=== PATIENT | female | born 1950 | race Caucasian/White ===

== ENCOUNTER 2017-12-13 15:57 | Emergency (ER) | payer MEDICARE, MEDICAID ==
[~2017-12-13] VITALS: Ht 160 cm; Wt 130.0 kg
[~2017-12-13 15:57] MED LIST: ABILIFY20 MG PO; ALMACONE LIQUI355 ML PO; AMBIEN 5 MG TABL5 M1 PO; ASPIR 8181 MG PO; ATIVAN0.5 MG PO; BENADRYL25 MG PO; BENZTROPINE MES1 MG PO; CEFTIN 250 MG250 MG PO; CIPRO500 MG PO; CLOZAPINE200 MG PO; COLACE100 MG PO; DOXYCYCLINE 10100 MG PO; GLUTOSE 1537.5 GM PO; IBUPROFEN 400400 M2 PO; KLOR-CON 1010 MEQ PO; LANTUS SUBQ; LEVAQUIN 500 M500 M4 PO; LIPITOR10 MG PO; LOPRESSOR50 PO; LYRICA 75 MG CA75 MG PO; LYRICA100 MG PO; MILK OF MA2400 MG/10 PO; MIRALAX17 GM PO; MIRALAX255 GM PO; MYRBETRIQ25 MG PO; NOVOLIN R100 UNIT/1 IJ; NOVOLIN R100 UNIT/1 SUBQ; NOVOLOG100 UNIT/1 SUBQ; NYSTATIN 1100000 U/M TOP; ONDANSETRON HCL4 M2 DISSOLVE; PANTOPRAZOLE SO40 M1 PO; SENOKOT-S1 TA1 PO; THEREMS-M1 EACH PO; TRAZODONE HCL50 MG PO; TRICOR145 MG PO; TYLENOL325 MG PO; WELLBUTRIN XL150 MG PO
[2017-12-13 19:56] VITALS: BP 136/77
== END 2017-12-13 19:57 | disposition home or self-care (01) ==
LOC: M.ERS 15:57
DX: S80.02XA Contusion of left knee, initial encounter (principal); K21.9 Gastro-esophageal reflux disease without esophagitis; I10 Essential (primary) hypertension; E78.5 Hyperlipidemia, unspecified; E11.9 Type 2 diabetes mellitus without complications; M19.90 Unspecified osteoarthritis, unspecified site; F32.9 Major depressive disorder, single episode, unspecified; Z79.4 Long term (current) use of insulin; Z90.710 Acquired absence of both cervix and uterus; Z88.0 Allergy status to penicillin; Z88.1 Allergy status to other antibiotic agents; W18.39XA Other fall on same level, initial encounter; Y93.89 Activity, other specified; Y92.89 Other specified places as the place of occurrence of the external cause; Y99.8 Other external cause status

== ENCOUNTER 2018-02-02 15:21 | Emergency (ER) | payer MEDICARE, MEDICAID ==
[~2018-02-02] VITALS: Ht 160 cm; Wt 133.8 kg
[2018-02-02 16:27] LABS: ABSOLUTE BASOPHILS 0.1 thou/uL (0.0-0.2); ABSOLUTE EOSINOPHILS 0.3 thou/uL (0.0-0.7); ABSOLUTE MONOCYTES 0.7 thou/uL (0.0-1.2); ABSOLUTE NEUTROPHILS 6.4 thou/uL (1.6-8.1); BASOPHILS 0.9 %; EOSINOPHILS 2.7 %; HEMATOCRIT 40.8 % (37.0-47.0); HEMOGLOBIN 13.8 gm/dL (12.0-15.0); LYMPHOCYTES 20.9 %; MCH 30.7 pg (26.0-34.0); MCHC 33.7 g/dL (28.0-37.0); MONOCYTES 7.3 %; MPV 7.8 fl. (7.2-11.1); NUCLEATED RBCS 0 /100WBC; PLATELET COUNT* 167 thou/uL (150-400); POLYS 68.2 %; RBC 4.49 mil/uL (4.20-5.00); RDW-CV 14.5 % (10.5-14.5); WBC 9.3 thou/uL (4.0-11.0)
[2018-02-02 16:35] LABS: ANION GAP 9 mmol/L (7-16); BUN 18 mg/dL (7-18); CALCIUM 9.2 mg/dL (8.5-10.1); CHLORIDE 99 mmol/L (98-107); CO2 27 mmol/L (21-32); CREATININE 1.1 mg/dL (0.6-1.3); GLUCOSE 169 mg/dL (70-99); POTASSIUM 4.2 mmol/L (3.5-5.1); SODIUM 135 mmol/L (136-145)
[2018-02-02 16:42] LABS: ALBUMIN 3.7 g/dL (3.4-5.0); ALKALINE PHOSPHATASE 62 U/L (46-116); SGOT 20 U/L (15-37); SGPT 32 U/L (30-65); TOTAL BILIRUBIN 0.3 mg/dL (<0.1-1.0); TOTAL PROTEIN 6.5 g/dL (6.4-8.2); TROPONIN-I LEVEL <0.06 ng/mL (<0.06)
[2018-02-02 17:44] VITALS: BP 111/44
== END 2018-02-02 17:47 | disposition home or self-care (01) ==
LOC: M.ERS 15:21
PROVIDERS: Physician Assistant
DX: G89.29 Other chronic pain (principal); M54.5 Low back pain; E11.40 Type 2 diabetes mellitus with diabetic neuropathy, unspecified; I10 Essential (primary) hypertension; E78.5 Hyperlipidemia, unspecified; M19.90 Unspecified osteoarthritis, unspecified site; F32.9 Major depressive disorder, single episode, unspecified; K21.9 Gastro-esophageal reflux disease without esophagitis; Z88.0 Allergy status to penicillin; Z88.1 Allergy status to other antibiotic agents; Z79.4 Long term (current) use of insulin; Z90.710 Acquired absence of both cervix and uterus

== ENCOUNTER 2018-02-09 11:20 | Inpatient (IN) | payer MEDICARE, MEDICAID ==
[~2018-02-09] VITALS: Ht 160 cm; Wt 127.9 kg
[2018-02-09 11:21] VITALS: BP 137/66
[2018-02-09 11:47] LABS: ABSOLUTE EOSINOPHILS 0.2 thou/uL (0.0-0.7); ABSOLUTE LYMPHOCYTES 1.4 thou/uL (0.8-5.3); ABSOLUTE MONOCYTES 0.7 thou/uL (0.0-1.2); BASOPHILS 0.2 %; EOSINOPHILS 1.1 %; HEMATOCRIT 43.4 % (37.0-47.0); HEMOGLOBIN 14.9 gm/dL (12.0-15.0); LYMPHOCYTES 10.7 %; MCHC 34.2 g/dL (28.0-37.0); MCV 90.5 fL (80.0-100.0); MONOCYTES 5.6 %; MPV 7.9 fl. (7.2-11.1); NUCLEATED RBCS 0 /100WBC; PLATELET COUNT* 155 thou/uL (150-400); POLYS 82.4 %; RBC 4.79 mil/uL (4.20-5.00); RDW-CV 14.6 % (10.5-14.5); WBC 13.3 thou/uL (4.0-11.0)
[2018-02-09 11:51] LABS: ANION GAP 9 mmol/L (7-16); BUN 14 mg/dL (7-18); CALCIUM 8.4 mg/dL (8.5-10.1); CHLORIDE 98 mmol/L (98-107); CO2 28 mmol/L (21-32); GLUCOSE 169 mg/dL (70-99); SODIUM 135 mmol/L (136-145)
[2018-02-09 12:02] LABS: ALBUMIN 3.4 g/dL (3.4-5.0); ALKALINE PHOSPHATASE 67 U/L (46-116); NT-PRO BRAIN NAT PEPTIDE 44 pg/mL (<300); SGOT 20 U/L (15-37); SGPT 32 U/L (30-65); TOTAL BILIRUBIN 0.3 mg/dL (<0.1-1.0); TOTAL PROTEIN 6.4 g/dL (6.4-8.2); TROPONIN-I LEVEL <0.06 ng/mL (<0.06)
[2018-02-09 15:13] VITALS: BP 126/67
--- NOTE | 2018-02-09 16:15 | EKG ---
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1950 Requested By: Ray Ellis Order Number: [id number] MD: Eric Yao Measurements Intervals [place] Rate: 91 P: 59 OR: 153 QRS: -42 QRSD: 93 T: 56 QT: 337 QTc: 415 Interpretive Statements Sinus rhythm left axis Abnormal R-wave progression, late transition consider Inferior infarct, old Compared to ECG 08/05/2017 12:39:12 No significant changes Electronically Signed On 02-09-2018 16:15:35 CDT by Eric Yao [email or web address] <ELECTRONICALLY SIGNED> By: Eric Yao MD, [facility] 02/09/18 1615 1139 1139 Eric Yao MD, [facility] /EPI
[2018-02-09 17:40] VITALS: BP 129/70
--- NOTE | 2018-02-09 18:20 | NUR ---
RECEIVED REPORT AND ASSUMED CARE AT 1525. VSS. CARDIAC MONITORIN IN PLACE. PT DENIES ANY COMPLAINTS OF PAIN. PT IS Q2T, 4L NC, SR ON THE MONITOR, PT SEPTIC, COMPLAINTS OF BLADDER FEELING FULL,NOT ABLE TO URINATE. LASIX IVEN. MARTÍNEZ PLACED PER PHYSICIAN ODERS. MEDICATIONS ADMINISTERED PRE ORDERS. TURNS COMPLETED, HOURLY ROUNDING COMPLETED, ALL NEEDS MET. PT REPORTED HEACHACHE , PRN MEDICATION ADMINISTERED. NURSING WILL CONTINUE TO MONITOR
[2018-02-09 18:28] LABS: URINE BILIRUBIN NEGATIVE (Negative); URINE BLOOD NEGATIVE (Negative); URINE CLARITY CLEAR; URINE COLOR YELLOW; URINE GLUCOSE-RANDOM NEGATIVE (Negative); URINE KETONES NEGATIVE (Negative); URINE LEUKOCYTES-REFLEX NEGATIVE (Negative); URINE NITRITE-REFLEX NEGATIVE (Negative); URINE PROTEIN NEGATIVE (Negative); URINE SPECIFIC GRAVITY 1.015 (1.005-1.030); URINE UROBILINOGEN 0.2 E.U./dl (0.2-1.0)
[2018-02-09 19:50] VITALS: BP 101/59
[2018-02-10] VITALS: BP 98/58
[2018-02-10 04:00] VITALS: BP 116/59
--- NOTE | 2018-02-10 04:23 | NUR ---
A&O X4 CALM COOPERITIVE. Q2 TURNS. MARTÍNEZ FOR RENTION. SR ON THE MONTIOR. 4L O2. PT CLOAZAPINE NOT AVAILABLE. SISTER CALLED AND ASKED TO BRING MEDICATION TO HOSPITAL. METROPOL HELD BP LOW. VITALS WNL. SEE MAR. SEE CHARTING. FALL PRECAUTIONS IN PLACE. HOURLY ROUNDING FOR SAFETY.
[2018-02-10 05:10] LABS: HEMATOCRIT 41.2 % (37.0-47.0); HEMOGLOBIN 13.9 gm/dL (12.0-15.0); MCH 30.6 pg (26.0-34.0); MCHC 33.8 g/dL (28.0-37.0); MCV 90.4 fL (80.0-100.0); MPV 7.9 fl. (7.2-11.1); NUCLEATED RBCS 0 /100WBC; PLATELET COUNT* 146 thou/uL (150-400); RBC 4.56 mil/uL (4.20-5.00); RDW-CV 14.1 % (10.5-14.5); WBC 11.7 thou/uL (4.0-11.0)
[2018-02-10 05:25] LABS: ALBUMIN 3.5 g/dL (3.4-5.0); CALCIUM 8.7 mg/dL (8.5-10.1); CREATININE 0.9 mg/dL (0.6-1.3); MAGNESIUM 1.8 mg/dL (1.8-2.4); PHOSPHORUS* 2.9 mg/dL (2.5-4.9); TOTAL BILIRUBIN 0.4 mg/dL (<0.1-1.0); TOTAL PROTEIN 6.7 g/dL (6.4-8.2)
[2018-02-10 06:33] LABS: ABSOLUTE LYMPHOCYTES 1.2 thou/uL (0.8-5.3); ABSOLUTE MONOCYTES 0.2 thou/uL (0.0-1.2); ABSOLUTE NEUTROPHILS 10.3 thou/uL (1.6-8.1); ANISOCYTOSIS 1+; PLATELET ESTIMATE DECREASED; POIKILOCYTOSIS 1+
[2018-02-10 07:30] VITALS: BP 154/88
[2018-02-10 12:34] VITALS: BP 134/66
[2018-02-10 16:24] VITALS: BP 140/70
--- NOTE | 2018-02-10 16:49 | NUR ---
RECEIVED REPORT AND ASSUMED CARE AT 0700. VSS. CARDIAC MONITORING IN PLACE. PT DENIES ANY COMPLAINTS OF PAIN. PT UP IN CHAIR FOR BREAKFAST. ASSESSMENT COMPLETED CHARTED. MEDICATION ADMINISTERED PER ORDERS. PT UP WITH 1-2 ASSIST AND WALKER. PT ON 3L NC. PT SISTER BROUGHT CLOZAPINE MEDICATION FROM FACILITY SO PT CAN CONTINUE TREATMENT. MEDICATION VERIFIED BY PHARMACY AND PLACED IN PTACCESS BIN. RECEIVED CLOZAPINE AT 1430, 52 TAB IN MED CARD. WILL NEED TO RETURN TO FACILITY. POSSIBLY NEED EMS TRANSPORT UPON D/C TO ENSURE MED CARD CAN BE TAKEN. WILL NOTIFY CM. HOURLY ROUNDING COMPLETED, ALL NEEDS MET. PT SAT UP IN CHAIR MAJORITY OF THE DAY. PROGRESSING TOWARDS GOALS. WILL CONTINUE TO MONITOR FOR REMIANDER OF THE SHIFT
[2018-02-10 20:00] VITALS: BP 123/79
[2018-02-11] VITALS: BP 125/74
[2018-02-11 04:00] VITALS: BP 146/84
[2018-02-11 07:18] LABS: ABSOLUTE LYMPHOCYTES 1.2 thou/uL (0.8-5.3); ABSOLUTE MONOCYTES 0.7 thou/uL (0.0-1.2); ABSOLUTE NEUTROPHILS 11.9 thou/uL (1.6-8.1); BASOPHILS 0.3 %; EOSINOPHILS 0.2 %; HEMATOCRIT 40.7 % (37.0-47.0); HEMOGLOBIN 13.7 gm/dL (12.0-15.0); LYMPHOCYTES 8.6 %; MCH 30.8 pg (26.0-34.0); MCHC 33.7 g/dL (28.0-37.0); MCV 91.5 fL (80.0-100.0); MONOCYTES 4.9 %; MPV 8.2 fl. (7.2-11.1); NUCLEATED RBCS 0 /100WBC; PLATELET COUNT* 159 thou/uL (150-400); RBC 4.45 mil/uL (4.20-5.00); RDW-CV 14.3 % (10.5-14.5); WBC 13.8 thou/uL (4.0-11.0)
[2018-02-11 07:32] LABS: ALBUMIN 3.6 g/dL (3.4-5.0); CALCIUM 8.6 mg/dL (8.5-10.1); CREATININE 0.9 mg/dL (0.6-1.3); POTASSIUM 4.3 mmol/L (3.5-5.1); TOTAL BILIRUBIN 0.3 mg/dL (<0.1-1.0); TOTAL PROTEIN 6.7 g/dL (6.4-8.2)
[2018-02-11 07:50] VITALS: BP 160/90
[2018-02-11 12:18] VITALS: BP 126/70
[2018-02-11 15:57] VITALS: BP 140/76
--- NOTE | 2018-02-11 16:57 | NUR ---
RECEIVED REPORT AND ASSUMED CARE AT 0700. VSS. NEGATIVE CLEANER IN PLACE. PT DENIES ANY COMPLAINTS OF PAIN. ASSESSMENT COMPLETED CHARTED. DISCUSSED PLAN OF CARE WITH PT, VERBALIZED UNDERSTANDING. PT UP SBA WITH WALKER IN THE ROOM. MARTÍNEZ CATH D/C PER ORDERS. IV FLUIDS D/C. PT ON RA. BED IN LOWEST POSITIOIN, CALL LIGHT WITHIN REACH. BED ALARM ON, CHAIR ALARM USED WHEN IN RECLINER. PT STATES SHE IS FEELING BETTER TODAY. HOURLY ROUNDING COMPLETED AND ALL NEEDS MET. NURSING WILL CONTINUE TO MONITOR.
[2018-02-11 19:50] VITALS: BP 137/71
[2018-02-12] VITALS (8 sets, daily range): BP systolic 104–168; BP diastolic 57–76
[2018-02-12 04:47] LABS: HEMOGLOBIN 12.7 gm/dL (12.0-15.0); MCV 90.4 fL (80.0-100.0); WBC 13.6 thou/uL (4.0-11.0)
[2018-02-12 04:50] LABS: ABSOLUTE EOSINOPHILS 0.2 thou/uL (0.0-0.7); ABSOLUTE MONOCYTES 0.9 thou/uL (0.0-1.2); ABSOLUTE NEUTROPHILS 9.6 thou/uL (1.6-8.1); BASOPHILS 0.2 %; EOSINOPHILS 1.4 %; HEMATOCRIT 37.4 % (37.0-47.0); MCH 30.7 pg (26.0-34.0); MONOCYTES 6.3 %; MPV 7.7 fl. (7.2-11.1); NUCLEATED RBCS 0 /100WBC; PLATELET COUNT* 159 thou/uL (150-400); POLYS 70.1 %; RBC 4.13 mil/uL (4.20-5.00); RDW-CV 14.8 % (10.5-14.5)
[2018-02-12 05:12] LABS: ALBUMIN 3.1 g/dL (3.4-5.0); CALCIUM 8.3 mg/dL (8.5-10.1); CREATININE 0.8 mg/dL (0.6-1.3); POTASSIUM 3.4 mmol/L (3.5-5.1); TOTAL BILIRUBIN 0.3 mg/dL (<0.1-1.0); TOTAL PROTEIN 5.6 g/dL (6.4-8.2)
--- NOTE | 2018-02-12 05:46 | NUR ---
PT A&O X2 CALM COOPERITIVE. SR ON THE MONITOR. APROX 0400 PT BLOOD SUGAR WAS 41, DEXTROSS GIVEN BLOOD SUGAR INC TO 148,1 HOUR LATER SUGAR 89, 30 MIN LATER SUGAR DROPED TO 70, GLUCOSE PASTE GIVEN AT 0600. Q2 TURNS. UP WITH X1 AND WALKER. VITALS WNL. SEE MAR. SEE CHARTING. FALL PRECAUTIONS IN PLACE. HOURLY ROUNDING FOR SAFETY.
--- NOTE | 2018-02-12 10:50 | NUR ---
CM SPOKE TO THE PAIENT TO DISCUSS HOME SITUATION, DISCHARGE PLANNING AND TO INFORM OF THE ROLE OF CM. PATIENT ALERT, BUT FORGETFUL. CM SPOKE TO YULIA WITH [facility] TO COMPLETE ASSESSMENT. YULIA CONFIRMS THAT THE PATIENT IS A RESIDENT IN THE FACILITY, AND THE STAFF ASSIST WITH BATHING, DRESSING, AND PREPARE MEALS. THE PATIENT USES A WALKER FOR MOBILITY. PATIENT HAS A HX OF HH WITH [facility]. [facility] WILL ACCEPT THE PATIENT BACK TO THE FACILITY AT D/C, AND WILL NEEDS D/C ORDERS FAXED AT THAT TIME. [facility] OFFICE WILL ALSO NEED TO BE CONTACTED PRIOR TO DISCHARGE. CM WILL REMAIN AVAILABLE TO ASSIST AND FOLLOW NEEDED. [facility] (YULIA) PHONE: [phone] FAX: [phone] [facility] OFICE PHONE: [phone]
--- NOTE | 2018-02-12 12:20 | NUR ---
Nutrition: Pt seen for high BMI and DX of sepsis. Pt was confused at 11:50. She did state she has a good appetite. She lost 5# in past 2 months b/c she is trying to eat healthier. RD gave her handouts on plate method and seving sizes. Pt was appreciative. Labs: K+ 3.4, alb 3.1, WBC 13.6. "Early sepsis." CHO controlled diet. H/o IDDM. Has had some hypoglycemia since admit. No further nutrition interventions needed. Mild risk. Will follow up per protocol.
--- NOTE | 2018-02-12 19:15 | NUR ---
PATINET RESTING IN BED. UP WITH STANDBY ASSIST AND WALKER USAGE. VITAL SIGNS STABLE. PAITNET HAD A BOUT OF HYPOGLYCEMIA THIS AM TREATED WITH PO JUICES AND MEDICATION CHANGES. PAITNET ALERT AND ORIENTED X3 TODAY AND APPROPRIATE. PATIENT DOES FORGET TO CALL OUT AT TIMES AND HAS URGENCY WITH URINATION. HOURY ROUNDING COMPLETD FOR PATIENT SAFETY.
[2018-02-13 03:56] VITALS: BP 124/55
[2018-02-13 04:29] LABS: ABSOLUTE BASOPHILS 0.1 thou/uL (0.0-0.2); ABSOLUTE EOSINOPHILS 0.3 thou/uL (0.0-0.7); ABSOLUTE LYMPHOCYTES 2.6 thou/uL (0.8-5.3); ABSOLUTE MONOCYTES 0.6 thou/uL (0.0-1.2); ABSOLUTE NEUTROPHILS 4.6 thou/uL (1.6-8.1); BASOPHILS 0.9 %; EOSINOPHILS 3.3 %; HEMATOCRIT 36.5 % (37.0-47.0); HEMOGLOBIN 12.4 gm/dL (12.0-15.0); LYMPHOCYTES 31.9 %; MCH 30.9 pg (26.0-34.0); MCHC 33.8 g/dL (28.0-37.0); MCV 91.2 fL (80.0-100.0); MONOCYTES 7.7 %; MPV 7.8 fl. (7.2-11.1); NUCLEATED RBCS 0 /100WBC; PLATELET COUNT* 142 thou/uL (150-400); POLYS 56.2 %; RDW-CV 14.7 % (10.5-14.5); WBC 8.2 thou/uL (4.0-11.0)
[2018-02-13 04:41] LABS: ALBUMIN 2.8 g/dL (3.4-5.0); CALCIUM 8.5 mg/dL (8.5-10.1); CREATININE 0.8 mg/dL (0.6-1.3); POTASSIUM 3.7 mmol/L (3.5-5.1); TOTAL BILIRUBIN 0.4 mg/dL (<0.1-1.0); TOTAL PROTEIN 5.5 g/dL (6.4-8.2)
--- NOTE | 2018-02-13 05:33 | NUR ---
PT IS ABLE TO COMMUNICATE HER NEEDS TO STAFF WITH ONLY MINOR DIFFICULTY; SHE HAS SOME MILD COGNITIVE DELAY AND REQUIRES SOME EXTRA TIME TO RESPOND AT TIMES. SHE HAS DENIED THE NEED FOR PAIN MEDICATION UP TO THIS TIME. POSSIBLE DISCHARGE LATER TODAY.
[2018-02-13 08:00] VITALS: BP 119/70
[2018-02-13 11:30] VITALS: BP 110/57
[2018-02-13 16:00] VITALS: BP 137/72
--- NOTE | 2018-02-13 19:02 | NUR ---
PATIENT RESTING IN CHAIR IN ROOM. VITAL SIGNS STABLE. PATIENT UP WITH STANDBY ASSIST AND WALKER. HOURLY ROUNDING FOR PATINET SAFETY.
[2018-02-14] VITALS (7 sets, daily range): BP systolic 122–155; BP diastolic 59–88
--- NOTE | 2018-02-14 05:36 | NUR ---
PT IS ABLE TO COMMUNICATE HER NEEDS TO STAFF WITH MINOR DIFFICULTY; SHE HAS SOME MILD COGNITIVE DELAY AND SOMETIMES REQUIRES EXTRA TIME TO RESPOND. SHE HAS DENIED THE NEED FOR PAIN MEDICATION UP TO THIS TIME. POSSIBLE DISCHARGE IN THE NEXT DAY OR TWO.
--- NOTE | 2018-02-14 11:55 | CON ---
[address] [address] CONSULTATION Name: DARSHANA ONOFRE Room: [address] IN M.Manny.#: [id number] Admission: 02/09/18 Attend Phys: Martínez Boswell MD Discharge: Date of : 50 Report #: [id number] THIS REPORT FOR: //name// CC: Martínez Majano DATE OF SERVICE: 02/13/2018 INFECTIOUS DISEASE CONSULTATION ATTENDING PHYSICIAN: Martínez Boswell M.D. REASON FOR EVALUATION: Positive blood culture. HISTORY OF PRESENT ILLNESS: Chart reviewed, patient examined. This is a 67-year-old with extensive medical history given her age, diabetes mellitus, history of schizophrenia, who resides in a facility, was admitted there, noted to have increasing dyspnea, was found to be borderline hypoxemic on room air. Evaluation raised question of possible early sepsis with pneumonitis. Chest x-ray showed mild patchy bibasilar atelectasis or pneumonitis. She was empirically started on antimicrobials including vancomycin, azithromycin, single dose of ceftriaxone. Blood cultures collected on admission, now 1 out of 2 with growth of gram-positive cocci. She is somewhat clinically better. She admits to some discomfort, sitting up at the side of the bed, has significant gastrointestinal-related complaints. ALLERGIES: PENICILLIN, SULFA. CURRENT MEDICATIONS: Include vancomycin, aspirin, aripiprazole, pantoprazole, insulin, metoprolol, bupropion, enoxaparin, pregabalin. PAST MEDICAL HISTORY: As noted above, has chronic back pain; peripheral neuropathy; reflux; hypertension; hyperlipidemia; diabetes mellitus type 2, insulin requiring; mild mental retardation; osteoarthritis; depression; schizophrenia. SOCIAL HISTORY: Nonsmoker, no ethanol. FAMILY HISTORY: Noncontributory. REVIEW OF SYSTEMS: As above. PHYSICAL EXAMINATION: GENERAL: Appears to be somewhat chronically ill, undernourished, although she is obese. She is in ldfd-dr-otyixnlq distress. [place] [address] CONSULTATION Name: DESTINEYMARTINEZLEXDARSHANA Mario Room: [address] IN ..#: [id number] Admission: 02/09/18 Attend Phys: Martínez Boswell MD Discharge: Date of : 50 Report #: [id number] VITAL SIGNS: Temperature 98.2, pulse 74, respirations 19, blood pressure 124/55. SKIN: Warm, dry, no rashes. NECK: Generally supple. There is some mild decreased range of motion, has kind of bull neck. LUNGS: Few scattered crackles. HEART: Regular. I do not appreciate any murmur. ABDOMEN: Soft, is obese, some mild tenderness in the left lower quadrant. GENITOURINARY: Deferred. RECTAL: Deferred. LABORATORY DATA: CRP elevated at 35.6. Electrolytes: Sodium 140, potassium 3.7, chloride 104, bicarbonate is 30, anion gap of 6, BUN and creatinine 19 and 0.8, glucose of 106. LFTs unremarkable. Albumin of 2.8, total protein 5.5. Estimated GFR 72. CBC now 8.2. Chest x-ray on followup showed possible bilateral lower lobe pneumonia. ASSESSMENT: Positive blood culture. In this setting, I think it is reasonable to continue the vancomycin as it gives good gram-positive coverage. Certainly if isolation of pneumococcus may help clarify things or if Staphylococcus aureus certainly is not inclined, it would be that is a false positive or contaminant. At this point, I think she is marginally better than admission. We will continue to monitor expectantly. <ELECTRONICALLY SIGNED> By: Reynaldo Oneill MD 02/14/18 1155 1030 [id number] Oneill MD /nt
--- NOTE | 2018-02-14 17:11 | NUR ---
PT PROGRESSING TOWARDS GOALS THIS SHIFT. VSS. PT MOSTLY COMPLIANT WITH FALL PRECAUTIONS. IV ABTS ORDERED. NO OTHER CONCERNS AT THIS TIME. CLWR. WCTM.
[2018-02-15 04:00] VITALS: BP 121/69
--- NOTE | 2018-02-15 05:27 | NUR ---
PT IS ABLE TO COMMUNICATE HER NEEDS TO STAFF WITH MINOR DIFFICULTY; SHE HAS MILD COGNITIVE DELAY AND REQUIRES EXTRA TIME TO RESPOND AT TIMES. CURRENT PAIN MEDICATION REGIMEN HAS BEEN ADEQUATE FOR CONTROLLING HER PAIN UP TO THIS TIME. POSSIBLE DISCHARGE BACK TO FACILITY IN A DAY OR TWO.
[2018-02-15 07:15] LABS: ABSOLUTE BASOPHILS 0.1 thou/uL (0.0-0.2); ABSOLUTE EOSINOPHILS 0.5 thou/uL (0.0-0.7); ABSOLUTE LYMPHOCYTES 2.4 thou/uL (0.8-5.3); ABSOLUTE MONOCYTES 0.6 thou/uL (0.0-1.2); ABSOLUTE NEUTROPHILS 6.7 thou/uL (1.6-8.1); BASOPHILS 0.5 %; EOSINOPHILS 5.3 %; HEMATOCRIT 39.5 % (37.0-47.0); HEMOGLOBIN 13.4 gm/dL (12.0-15.0); LYMPHOCYTES 23.3 %; MCH 30.4 pg (26.0-34.0); MCHC 33.9 g/dL (28.0-37.0); MCV 89.7 fL (80.0-100.0); MONOCYTES 5.6 %; MPV 7.4 fl. (7.2-11.1); NUCLEATED RBCS 0 /100WBC; PLATELET COUNT* 172 thou/uL (150-400); POLYS 65.3 %; RBC 4.41 mil/uL (4.20-5.00); RDW-CV 14.4 % (10.5-14.5); WBC 10.2 thou/uL (4.0-11.0)
[2018-02-15 07:25] LABS: ALBUMIN 3.2 g/dL (3.4-5.0); CALCIUM 8.7 mg/dL (8.5-10.1); CREATININE 0.8 mg/dL (0.6-1.3); POTASSIUM 3.6 mmol/L (3.5-5.1); TOTAL BILIRUBIN 0.5 mg/dL (<0.1-1.0); TOTAL PROTEIN 6.2 g/dL (6.4-8.2)
[2018-02-15 08:00] VITALS: BP 147/77
[2018-02-15 13:16] VITALS: BP 124/75
[2018-02-15] MEDS ORDERED: LEVAQUIN 500 M500 M2 PO (15:27)
--- NOTE | 2018-02-15 15:27 | NUR ---
Received order from physician to arrange d/c back to [facility]. Spoke with Mickie at [facility] office and faxed d/c orders to her. Received approval from PA office to transfer. Spoke with nurse at [place] and faxed d/c orders. Called [facility] and they will transport between [id number]. Chart copied. No other needs identified. [facility] [phone] [facility] [phone] [facility] [phone]
[2018-02-15 15:37] VITALS: BP 124/75
[2018-02-15] MEDS ORDERED: NYAMYC15 GM TOP (15:45)
[2018-02-15 16:41] VITALS: BP 119/69
== END 2018-02-15 17:25 | DRG 871 ==
LOC: M.ERS 11:20 → M.TBA-ER 12:47 → M.2W 12:47
PROVIDERS: Emergency Medicine Emergency Medical Services; ADMIT Internal Medicine
DX: A41.9 Sepsis, unspecified organism (principal); J18.9 Pneumonia, unspecified organism; J96.01 Acute respiratory failure with hypoxia; G93.40 Encephalopathy, unspecified; E11.649 Type 2 diabetes mellitus with hypoglycemia without coma; G89.29 Other chronic pain; M19.90 Unspecified osteoarthritis, unspecified site; F32.9 Major depressive disorder, single episode, unspecified; E11.42 Type 2 diabetes mellitus with diabetic polyneuropathy; I10 Essential (primary) hypertension; M54.9 Dorsalgia, unspecified; K21.9 Gastro-esophageal reflux disease without esophagitis; E78.5 Hyperlipidemia, unspecified; Z79.4 Long term (current) use of insulin; Z90.710 Acquired absence of both cervix and uterus; Z88.0 Allergy status to penicillin; Z88.2 Allergy status to sulfonamides; Z88.8 Allergy status to other drugs, medicaments and biological substances; Z82.49 Family history of ischemic heart disease and other diseases of the circulatory system; Z79.82 Long term (current) use of aspirin; Z79.899 Other long term (current) drug therapy

== ENCOUNTER 2018-03-22 16:56 | Inpatient (IN) | payer MEDICARE, MEDICAID ==
[~2018-03-22] VITALS: Ht 160 cm; Wt 126.6 kg
[~2018-03-22 16:56] MED LIST changes: +LEVAQUIN 500 M500 M2 PO; +NYAMYC15 GM TOP
[2018-03-22 17:10] VITALS: BP 117/68
[2018-03-22] MEDS ORDERED: MYRBETRIQ50 MG PO (17:47)
[2018-03-22] MEDS ORDERED: TRICOR145 MG PO (17:47)
[2018-03-22] MEDS ORDERED: LOPERAMIDE 2 MG2 M1 PO (17:48)
[2018-03-22] MEDS ORDERED: MIRALAX17 GM PO (17:48)
[2018-03-22] MEDS ORDERED: RITALIN10 MG PO (17:53)
[2018-03-22 18:19] LABS: ABSOLUTE BASOPHILS 0.1 thou/uL (0.0-0.2); ABSOLUTE EOSINOPHILS 0.2 thou/uL (0.0-0.7); ABSOLUTE LYMPHOCYTES 1.3 thou/uL (0.8-5.3); ABSOLUTE MONOCYTES 0.7 thou/uL (0.0-1.2); ABSOLUTE NEUTROPHILS 6.9 thou/uL (1.6-8.1); BASOPHILS 0.7 %; EOSINOPHILS 1.9 %; HEMATOCRIT 37.5 % (37.0-47.0); HEMOGLOBIN 12.6 gm/dL (12.0-15.0); LYMPHOCYTES 14.4 %; MCH 30.8 pg (26.0-34.0); MCHC 33.5 g/dL (28.0-37.0); MCV 91.8 fL (80.0-100.0); MONOCYTES 7.5 %; MPV 7.3 fl. (7.2-11.1); NUCLEATED RBCS 0 /100WBC; PLATELET COUNT* 195 thou/uL (150-400); POLYS 75.5 %; RBC 4.09 mil/uL (4.20-5.00); RDW-CV 14.7 % (10.5-14.5); WBC 9.1 thou/uL (4.0-11.0)
[2018-03-22 18:26] LABS: CALCIUM 8.4 mg/dL (8.5-10.1); POTASSIUM 3.4 mmol/L (3.5-5.1)
[2018-03-22 18:31] LABS: TOTAL BILIRUBIN 0.4 mg/dL (<0.1-1.0)
[2018-03-22 21:24] LABS: URINE BILIRUBIN NEGATIVE (Negative); URINE BLOOD TRACE (Negative); URINE CLARITY CLEAR; URINE COLOR YELLOW; URINE GLUCOSE-RANDOM NEGATIVE (Negative); URINE KETONES NEGATIVE (Negative); URINE NITRITE-REFLEX NEGATIVE (Negative); URINE PROTEIN NEGATIVE (Negative); URINE UROBILINOGEN 0.2 E.U./dl (0.2-1.0)
[2018-03-22 21:25] LABS: URINE LEUKOCYTES-REFLEX 3+ (Negative)
[2018-03-22 21:31] LABS: BACTERIA-REFLEX >30 Many /HPF (None Seen); CASTS None Seen /LPF (None Seen); CRYSTALS None Seen /LPF (None Seen); MUCUS None Seen strn/LPF (None Seen); SQUAMOUS >10 Many /LPF (0-3); URINE WBC-REFLEX >25 Many /HPF (0-5)
[2018-03-22 21:32] LABS: URINE RBC 0-2 Rare /HPF (0-2); WBC CLUMPS Few (None Seen)
[2018-03-22 22:30] VITALS: BP 109/59
[2018-03-22 22:35] VITALS: BP 131/74
[2018-03-23 04:24] LABS: HEMATOCRIT 35.5 % (37.0-47.0); MCH 31.2 pg (26.0-34.0); MCHC 33.7 g/dL (28.0-37.0); MCV 92.6 fL (80.0-100.0); MPV 7.2 fl. (7.2-11.1); RBC 3.83 mil/uL (4.20-5.00); RDW-CV 14.7 % (10.5-14.5); WBC 10.6 thou/uL (4.0-11.0)
[2018-03-23 04:48] LABS: ALBUMIN 2.9 g/dL (3.4-5.0); CALCIUM 8.2 mg/dL (8.5-10.1); CREATININE 0.8 mg/dL (0.6-1.3); TOTAL BILIRUBIN 0.3 mg/dL (<0.1-1.0); TOTAL PROTEIN 5.3 g/dL (6.4-8.2)
[2018-03-23 07:30] VITALS: BP 105/51
[2018-03-23 16:15] VITALS: BP 141/72
[2018-03-23 19:49] VITALS: BP 120/78
[2018-03-24] VITALS: BP 108/66
[2018-03-24 02:11] LABS: GLYCOHEMOGLOBIN (HGB A1C) 5.5 % (4.8-5.6)
[2018-03-24 04:46] LABS: ABSOLUTE BASOPHILS 0.1 thou/uL (0.0-0.2); ABSOLUTE EOSINOPHILS 0.4 thou/uL (0.0-0.7); ABSOLUTE LYMPHOCYTES 2.3 thou/uL (0.8-5.3); ABSOLUTE MONOCYTES 0.5 thou/uL (0.0-1.2); ABSOLUTE NEUTROPHILS 5.2 thou/uL (1.6-8.1); BASOPHILS 0.8 %; EOSINOPHILS 4.1 %; HEMATOCRIT 35.5 % (37.0-47.0); HEMOGLOBIN 11.9 gm/dL (12.0-15.0); LYMPHOCYTES 27.4 %; MCH 30.8 pg (26.0-34.0); MCHC 33.4 g/dL (28.0-37.0); MONOCYTES 6.2 %; MPV 7.6 fl. (7.2-11.1); NUCLEATED RBCS 0 /100WBC; PLATELET COUNT* 171 thou/uL (150-400); POLYS 61.5 %; RBC 3.86 mil/uL (4.20-5.00); RDW-CV 14.8 % (10.5-14.5); WBC 8.5 thou/uL (4.0-11.0)
[2018-03-24 05:24] LABS: CALCIUM 8.2 mg/dL (8.5-10.1); CREATININE 0.8 mg/dL (0.6-1.3); POTASSIUM 3.8 mmol/L (3.5-5.1)
[2018-03-24 07:35] VITALS: BP 144/78
[2018-03-24 08:00] VITALS: BP 144/78
[2018-03-24 16:00] VITALS: BP 130/56
[2018-03-24 22:01] VITALS: BP 127/54
[2018-03-25 00:30] VITALS: BP 108/51
[2018-03-25 04:00] VITALS: BP 108/51
[2018-03-25 08:05] VITALS: BP 137/68
[2018-03-25 15:53] VITALS: BP 127/62
[2018-03-25 21:33] VITALS: BP 147/70
[2018-03-26 08:00] VITALS: BP 135/58
[2018-03-26 16:00] VITALS: BP 112/61
[2018-03-26 20:00] VITALS: BP 137/64
[2018-03-27 04:34] LABS: ABSOLUTE BASOPHILS 0.1 thou/uL (0.0-0.2); ABSOLUTE EOSINOPHILS 0.3 thou/uL (0.0-0.7); ABSOLUTE LYMPHOCYTES 2.8 thou/uL (0.8-5.3); ABSOLUTE MONOCYTES 0.7 thou/uL (0.0-1.2); ABSOLUTE NEUTROPHILS 5.8 thou/uL (1.6-8.1); BASOPHILS 0.9 %; EOSINOPHILS 3.1 %; HEMATOCRIT 35.6 % (37.0-47.0); HEMOGLOBIN 11.9 gm/dL (12.0-15.0); LYMPHOCYTES 28.6 %; MCH 30.7 pg (26.0-34.0); MCHC 33.4 g/dL (28.0-37.0); MONOCYTES 7.7 %; MPV 7.8 fl. (7.2-11.1); NUCLEATED RBCS 0 /100WBC; PLATELET COUNT* 186 thou/uL (150-400); POLYS 59.7 %; RBC 3.87 mil/uL (4.20-5.00); RDW-CV 14.8 % (10.5-14.5); WBC 9.6 thou/uL (4.0-11.0)
[2018-03-27 04:55] LABS: ALBUMIN 3.1 g/dL (3.4-5.0); CALCIUM 8.3 mg/dL (8.5-10.1); CREATININE 0.8 mg/dL (0.6-1.3); POTASSIUM 3.2 mmol/L (3.5-5.1); TOTAL BILIRUBIN 0.3 mg/dL (<0.1-1.0); TOTAL PROTEIN 5.9 g/dL (6.4-8.2)
[2018-03-27 07:55] VITALS: BP 134/71
[2018-03-27] MEDS ORDERED: HUMALOG100 UNIT/1 SUBQ (12:06)
[2018-03-27] MEDS ORDERED: MACROBID 100 M100 M2 PO (14:09)
[2018-03-27 14:20] VITALS: BP 134/71
== END 2018-03-27 15:55 | disposition home or self-care (01) | DRG 70 ==
LOC: M.ERS 16:56 → M.TBA-ER 21:41 → M.ORTHSURG 21:41 → M.3W 03-23 21:00
PROVIDERS: Internal Medicine; Personal Emergency Response Attendant; ADMIT Internal Medicine
DX: G93.40 Encephalopathy, unspecified (principal); R65.11 Systemic inflammatory response syndrome (SIRS) of non-infectious origin with acute organ dysfunction; N39.0 Urinary tract infection, site not specified; Z68.42 Body mass index [BMI] 45.0-49.9, adult; E11.649 Type 2 diabetes mellitus with hypoglycemia without coma; E66.01 Morbid (severe) obesity due to excess calories; E11.40 Type 2 diabetes mellitus with diabetic neuropathy, unspecified; K21.9 Gastro-esophageal reflux disease without esophagitis; I10 Essential (primary) hypertension; M54.9 Dorsalgia, unspecified; E78.5 Hyperlipidemia, unspecified; M19.90 Unspecified osteoarthritis, unspecified site; F32.9 Major depressive disorder, single episode, unspecified; E86.0 Dehydration; F20.9 Schizophrenia, unspecified; G89.29 Other chronic pain; Z79.2 Long term (current) use of antibiotics; Z79.4 Long term (current) use of insulin; Z79.899 Other long term (current) drug therapy; Z88.0 Allergy status to penicillin; Z88.2 Allergy status to sulfonamides; Z88.8 Allergy status to other drugs, medicaments and biological substances; Z79.82 Long term (current) use of aspirin; Z90.710 Acquired absence of both cervix and uterus; Z82.49 Family history of ischemic heart disease and other diseases of the circulatory system

== ENCOUNTER 2018-09-05 10:56 | Emergency (ER) | payer MEDICARE, MEDICAID ==
[~2018-09-05] VITALS: Ht 160 cm; Wt 126.5 kg
[~2018-09-05 10:56] MED LIST changes: +HUMALOG100 UNIT/1 SUBQ; +LOPERAMIDE 2 MG2 M1 PO; +MACROBID 100 M100 M2 PO; +MYRBETRIQ50 MG PO; +RITALIN10 MG PO
[2018-09-05 10:58] VITALS: BP 129/80
[2018-09-05] MEDS ORDERED: AMBIEN 5 MG TABL5 M1 PO (11:12)
[2018-09-05] MEDS ORDERED: LANTUS100 UNIT/M SUBQ (11:15)
[2018-09-05 11:31] LABS: ABSOLUTE EOSINOPHILS 0.2 thou/uL (0.0-0.7); ABSOLUTE LYMPHOCYTES 1.1 thou/uL (0.8-5.3); ABSOLUTE MONOCYTES 0.6 thou/uL (0.0-1.2); ABSOLUTE NEUTROPHILS 8.2 thou/uL (1.6-8.1); BASOPHILS 0.4 %; EOSINOPHILS 2.2 %; HEMATOCRIT 40.6 % (37.0-47.0); HEMOGLOBIN 13.8 gm/dL (12.0-15.0); LYMPHOCYTES 10.8 %; MCH 30.3 pg (26.0-34.0); MONOCYTES 6.3 %; MPV 8.5 fl. (7.2-11.1); NUCLEATED RBCS 0 /100WBC; PLATELET COUNT* 156 thou/uL (150-400); POLYS 80.3 %; RBC 4.56 mil/uL (4.20-5.00); RDW-CV 15.4 % (10.5-14.5); WBC 10.2 thou/uL (4.0-11.0)
[2018-09-05 11:35] LABS: ANION GAP 10 mmol/L (7-16); BUN 13 mg/dL (7-18); CHLORIDE 102 mmol/L (98-107); CO2 28 mmol/L (21-32); GLUCOSE 151 mg/dL (70-99); POTASSIUM 3.8 mmol/L (3.5-5.1); SODIUM 140 mmol/L (136-145)
[2018-09-05 11:46] LABS: ALBUMIN 3.6 g/dL (3.4-5.0); ALKALINE PHOSPHATASE 57 U/L (46-116); MAGNESIUM 1.8 mg/dL (1.8-2.4); NT-PRO BRAIN NAT PEPTIDE 183 pg/mL (<300); SGOT 36 U/L (15-37); SGPT 35 U/L (30-65); TOTAL BILIRUBIN 0.5 mg/dL (<0.1-1.0); TOTAL PROTEIN 6.5 g/dL (6.4-8.2); TROPONIN-I LEVEL <0.06 ng/mL (<0.06)
[2018-09-05 11:48] LABS: URINE BILIRUBIN NEGATIVE (Negative); URINE BLOOD NEGATIVE (Negative); URINE CLARITY CLEAR; URINE COLOR YELLOW; URINE GLUCOSE-RANDOM NEGATIVE (Negative); URINE KETONES NEGATIVE (Negative); URINE LEUKOCYTES-REFLEX TRACE (Negative); URINE NITRITE-REFLEX NEGATIVE (Negative); URINE PROTEIN NEGATIVE (Negative); URINE UROBILINOGEN 0.2 E.U./dl (0.2-1.0)
[2018-09-05 11:50] LABS: INFLUENZA A ANTIGEN None Detected (None Detect); INFLUENZA B ANTIGEN None Detected (None Detect)
[2018-09-05 12:21] LABS: BE 2.2 mmol/L (-2 to +3); HCO3 26.7 mmol/L (22.0-26.0); PCO2 41.1 mmHg (35.0-45.0); PO2 74.6 mmHg (75.0-100.0)
--- NOTE | 2018-09-05 15:01 | NUR ---
[facility] WAS CONTACTED TO INQUIRE OF PATIENT'S BASELINE ORIENTATION. THE PATIENT'S SUPERVISOR JOINERS REPORTS THAT THE PATIENT'S ORIENTATION FLUCTUATES BETWEEN BEING ALERT AND ANSWERING QUESTIONS TO SOME DAYS BEING NOT VERY RESPONSIVE AND SLEEPING A LOT. THE PATIENT HAS DEMONSTRATED THE SAME ORIENTATION HERE DURING HER STAY.
[2018-09-05] MEDS ORDERED: AZITHROMYCIN 2250 MG PO (15:40)
[2018-09-05 17:45] VITALS: BP 120/68
--- NOTE | 2018-09-05 18:49 | EKG ---
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: [facility] : 1950 Requested By: Diane Lloyd Order Number: [id number] MD: Donald Mayer Measurements Intervals [place] Rate: 95 P: 43 NH: 146 QRS: -51 QRSD: 86 T: 160 QT: 371 QTc: 467 Interpretive Statements Sinus rhythm Abnormal R-wave progression, late transition Inferior infarct, old Lateral leads are also involved Compared to ECG 02/09/2018 11:39:26 No significant changes Electronically Signed On 09-05-2018 18:48:46 AIRPLANE PATROL PILOT by Donald Mayer [email or web address] <ELECTRONICALLY SIGNED> By: Donald Mayer MD, FACC 09/05/18 1848 1104 1104 Donald Mayer MD, [facility] /EPI
== END 2018-09-05 17:45 | disposition home or self-care (01) ==
LOC: M.ERS 10:56 → M.TBA-ER 13:12 → M.ERS 13:12
PROVIDERS: Personal Emergency Response Attendant
DX: E86.0 Dehydration (principal); G89.29 Other chronic pain; M54.9 Dorsalgia, unspecified; K21.9 Gastro-esophageal reflux disease without esophagitis; I10 Essential (primary) hypertension; E11.40 Type 2 diabetes mellitus with diabetic neuropathy, unspecified; F20.9 Schizophrenia, unspecified; F32.9 Major depressive disorder, single episode, unspecified; E78.5 Hyperlipidemia, unspecified; M19.90 Unspecified osteoarthritis, unspecified site; Z88.0 Allergy status to penicillin; Z88.1 Allergy status to other antibiotic agents; Z88.2 Allergy status to sulfonamides; Z90.710 Acquired absence of both cervix and uterus; Z87.01 Personal history of pneumonia (recurrent)

== ENCOUNTER 2019-01-08 16:57 | Inpatient (IN) | payer MEDICARE, MEDICAID ==
[~2019-01-08] VITALS: Ht 157.5 cm; Wt 117.9 kg
[~2019-01-08 16:57] MED LIST changes: +AZITHROMYCIN 2250 MG PO; -HUMALOG100 UNIT/1 SUBQ; -KLOR-CON 1010 MEQ PO; +LANTUS100 UNIT/M SUBQ; +POTASSIUM20 PO; +SENOKOT-S TABL1 EACH PO; -SENOKOT-S1 TA1 PO; +WELLBUTRIN SR150 MG PO; -WELLBUTRIN XL150 MG PO
[2019-01-08 17:03] VITALS: BP 122/63
[2019-01-08 17:26] LABS: ABSOLUTE EOSINOPHILS 0.2 thou/uL (0.0-0.7); ABSOLUTE LYMPHOCYTES 0.9 thou/uL (0.8-5.3); ABSOLUTE MONOCYTES 0.6 thou/uL (0.0-1.2); ABSOLUTE NEUTROPHILS 5.6 thou/uL (1.6-8.1); BASOPHILS 0.6 %; EOSINOPHILS 2.3 %; HEMATOCRIT 42.4 % (37.0-47.0); HEMOGLOBIN 14.2 gm/dL (12.0-15.0); LYMPHOCYTES 11.9 %; MCH 29.5 pg (26.0-34.0); MCHC 33.5 g/dL (28.0-37.0); MONOCYTES 8.5 %; MPV 7.8 fl. (7.2-11.1); NUCLEATED RBCS 0 /100WBC; PLATELET COUNT* 158 thou/uL (150-400); POLYS 76.7 %; RBC 4.82 mil/uL (4.20-5.00); RDW-CV 14.6 % (10.5-14.5); WBC 7.3 thou/uL (4.0-11.0)
[2019-01-08 17:34] LABS: CALCIUM 9.1 mg/dL (8.5-10.1); CREATININE 1.2 mg/dL (0.6-1.3); POTASSIUM 4.4 mmol/L (3.5-5.1)
[2019-01-08 17:36] LABS: BE 1.2 mmol/L (-2 to +3); PCO2 38.4 mmHg (35.0-45.0); PO2 60.1 mmHg (75.0-100.0); pH 7.437 (7.340-7.450)
[2019-01-08] MEDS ORDERED: ROBAXIN 750 MG750 M1 PO (17:36)
[2019-01-08] MEDS ORDERED: MUCINEX600 MG PO (17:36)
[2019-01-08] MEDS ORDERED: CIPRO500 MG PO (17:36)
[2019-01-08 17:39] LABS: ALBUMIN 3.9 g/dL (3.4-5.0); MAGNESIUM 1.7 mg/dL (1.8-2.4); TOTAL BILIRUBIN 0.3 mg/dL (<0.1-1.0); TOTAL PROTEIN 7.4 g/dL (6.4-8.2)
[2019-01-08 18:03] LABS: URINE BILIRUBIN NEGATIVE (Negative); URINE BLOOD NEGATIVE (Negative); URINE CLARITY CLEAR; URINE COLOR YELLOW; URINE GLUCOSE-RANDOM NEGATIVE (Negative); URINE KETONES NEGATIVE (Negative); URINE PROTEIN 1+ (Negative); URINE SPECIFIC GRAVITY >= 1.030 (1.005-1.030); URINE UROBILINOGEN 0.2 E.U./dl (0.2-1.0)
[2019-01-08 18:05] LABS: URINE LEUKOCYTES-REFLEX 2+ (Negative); URINE NITRITE-REFLEX POSITIVE (Negative)
[2019-01-08 18:09] LABS: BACTERIA-REFLEX >30 Many /HPF (None Seen); CASTS None Seen /LPF (None Seen); CRYSTALS None Seen /LPF (None Seen); SQUAMOUS 0-3 Few /LPF (0-3); URINE RBC 0-2 Rare /HPF (0-2)
--- NOTE | 2019-01-08 18:55 | NUR ---
CONSENT FOR TREATMENT & ADMISSION RECEIVED FROM [facility] MACHINE OPERATOR'S OFFICE, VASILE RIGGINS. WITNESSED BY 2ND RN BASILIO.
[2019-01-08 19:59] VITALS: BP 112/60
[2019-01-08 20:36] VITALS: BP 104/55
[2019-01-09 04:00] VITALS: BP 118/64
[2019-01-09 05:12] LABS: HEMOGLOBIN 12.9 gm/dL (12.0-15.0); MCH 29.3 pg (26.0-34.0); MCHC 32.9 g/dL (28.0-37.0); MCV 88.9 fL (80.0-100.0); MPV 8.2 fl. (7.2-11.1); RBC 4.39 mil/uL (4.20-5.00); RDW-CV 14.4 % (10.5-14.5)
[2019-01-09 05:45] LABS: ALBUMIN 3.1 g/dL (3.4-5.0); CALCIUM 8.5 mg/dL (8.5-10.1); CREATININE 0.9 mg/dL (0.6-1.3); MAGNESIUM 1.8 mg/dL (1.8-2.4); POTASSIUM 3.7 mmol/L (3.5-5.1); TOTAL BILIRUBIN 0.3 mg/dL (<0.1-1.0); TOTAL PROTEIN 6.1 g/dL (6.4-8.2)
--- NOTE | 2019-01-09 07:49 | NUR ---
PT ADMITTED TO ROOM 213 DURING THIS SHIFT; VSS, DROWSY AND ORIENTED TO SELF, NO IV FLUIDS RUNNING BUT IV IN PLACE, MARTÍNEZ PATENT, PT UNCOOPERATIVE AND CONFUSED. SHE IS VERY UNSTEADY ON HER FEET. SHE HAS DENIED THE NEED FOR PAIN MEDICATION UP TO THIS TIME. SHE HAS BEEN REFUSING MEDS AND TURNS.
[2019-01-09 08:00] VITALS: BP 113/62
--- NOTE | 2019-01-09 10:45 | EKG ---
[place] [address] ELECTROCARDIOGRAM REPORT Name: DARSHANA ONOFRE Room: [address] ADM IN M.R.#: [id number] Admission: 01/08/19 Attend Phys: Jaya Buchanan MD Discharge: Date of : 50 Report #: [id number] THIS REPORT FOR: //name// [facility] ED Test Date: 2019-01-08 Test Time: 17:05:10 Pat Name: DARSHANA ONOFRE Department: Room: [address] Gender: F Social Media Campaign Manager: [place] : 1950 Requested By: Diane Lloyd Order Number: [id number] MD: Eric Yao Measurements Intervals [place] Rate: 99 P: 55 GA: 143 QRS: -46 QRSD: 84 T: 86 QT: 415 QTc: 533 Interpretive Statements Sinus rhythm Abnormal R-wave progression, late transition Inferior infarct, old Prolonged QT interval Baseline wander in lead(s) I,II,aVR,V1,V2,V3,V4,V5,V6 Compared to ECG 09/05/2018 11:04:48 Prolonged QT interval now present Myocardial infarct finding still present Electronically Signed On 01-09-2019 10:45:38 CDT by Eric Yao [email or web address] <ELECTRONICALLY SIGNED> By: Eric Yao MD, [facility] 01/09/19 1045 04 04 Eric Yao MD, [facility] /EPI
[2019-01-09 11:11] LABS: GLYCOHEMOGLOBIN (HGB A1C) 6.8 % (4.8-5.6)
[2019-01-09 12:00] VITALS: BP 101/52
--- NOTE | 2019-01-09 13:59 | NUR ---
CM spoke with Pt's nurse, Zina, at [facility]. Pt uses a walker for mobilty, staff assist with most cares, Pt is SBA with transfers. Hx of [facility] HH. No hx of SNF. Pt has a [facility] PA, who will need to be contacted at pa [phone]. [facility] is able to accept Pt back at pa. [facility] [phone]
--- NOTE | 2019-01-09 14:18 | NUR ---
Nutrition: Pt admitted with sepsis 2/2 UTI. Pt is from a rest home. RX: ABX, insulin. H/o IDDM. Consult for wt change. Per [facility], wt was 279# in February 2018. Currently, wt is 263# - no significant wt change. Usual wt is in range of 250-289#. CHO controlled diet ordered. Alb 3.1, BG 179, A1c 6.8%. No nutrition concerns at this time. Low to mild risk.
[2019-01-09] MEDS ORDERED: CLARITIN10 MG PO (14:45)
[2019-01-09] MEDS ORDERED: FAMOTIDINE20 MG PO (14:45)
[2019-01-09] MEDS ORDERED: SELSUN BLUE207 M2 TOP (14:47)
[2019-01-09] MEDS ORDERED: IPRAT-ALBUT 0.5-3 ML INH (14:48)
[2019-01-09] MEDS ORDERED: HALLS COUGH DR1 EACH PO (14:48)
[2019-01-09] MEDS ORDERED: NORCO 5-325 TA1 EACH PO (14:48)
[2019-01-09] MEDS ORDERED: ROBITUSSIN100 MG/53 PO (14:49)
[2019-01-09 16:00] VITALS: BP 106/59
--- NOTE | 2019-01-09 19:59 | NUR ---
ASSUMED PT CARE AT 0730, AOX2 CONFUSED. O2 SAT AT 90'S NC 3L. TRACING SR ON FOOD PROCESSOR.LUNG SOUND COARSE/CRACKLES, PT COUGHING NOTED. PT FOR ACCU CHECK MSRA, URINE SPECIMEN COLLECTED. PT POSITIE GRAM AEROBIC COCCI, PROVIDER NOTIFIED. PT LAST BM, TODAY, EPISODE OF DIARRHEA. ABDOMEN SOFT, SOUND, OBESE. PT TURN Q2, HOURLY ROUNDING.VSS, AM ASSESSMENT CHARTED. MEDS GIVEN PER MAR. GIVE REPORT TO NIGHT NURSE. CALL LIGHT WITHIN REACH WILL CONTINUE TO MONITOR.
[2019-01-09 20:00] VITALS: BP 86/46
--- NOTE | 2019-01-09 20:28 | NUR ---
i have reviewed and agree with the assesment and note of Pallavi Bartholomew RN on 01/09/19
[2019-01-10 00:21] VITALS: BP 119/64
[2019-01-10 04:00] VITALS: BP 129/76
[2019-01-10 05:31] LABS: HEMOGLOBIN 11.6 gm/dL (12.0-15.0); MCHC 34.1 g/dL (28.0-37.0); MCV 88.2 fL (80.0-100.0); RBC 3.86 mil/uL (4.20-5.00); RDW-CV 14.6 % (10.5-14.5); WBC 6.1 thou/uL (4.0-11.0)
[2019-01-10 05:40] LABS: CALCIUM 8.3 mg/dL (8.5-10.1); CREATININE 0.8 mg/dL (0.6-1.3); MAGNESIUM 1.8 mg/dL (1.8-2.4); POTASSIUM 3.7 mmol/L (3.5-5.1)
[2019-01-10 08:00] VITALS: BP 125/71
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
[2019-01-10 17:13] VITALS: BP 95/48
--- NOTE | 2019-01-10 18:15 | NUR ---
PT ALERT/AWAKE. PT C.DIFF CAME NEGATIVE, CONTACT ISOLATION REMOVED. PT STILL SINUS RHYTHM ON TELE. PT FOR ACCU. O2 SAT AT 90'S 2L NC. PT FOR VANCOMYCIN THROUGH. PT LUNG SOUND COARSE/CRACKLE. PT HAS EPISODE OF LOOSE STOOL TODAY. I&O MONITOR. PT ON MARTÍNEZ CATHETER. IV ACCESS ON R HAND INTACT. GIVEN BED BATH. RASH NOTED AT GROIN AND UNDER THE BREAST. PT TURN Q2. BED ALARM. HOURLY ROUNDING. WILL CONTINUE TO MONITOR.
--- NOTE | 2019-01-10 18:49 | NUR ---
I HAVE REVIEWED AND AGREE WITH THE ASSESMENT AND NOTES OF ISRRAEL Cline RN ON 01/10/19
[2019-01-10 20:00] VITALS: BP 120/63
[2019-01-11 04:22] VITALS: BP 129/77
--- NOTE | 2019-01-11 04:36 | NUR ---
ASSUMED PT CARE AT 1930. ASSESSMENT COMPLETED CHARTED. NOTICED IV CAME OUT DURING 8PM TURNS, TRIED A COUPLE TIMES PUTTING IN A NEW IV AND WAS WAITING FOR V BELT INSPECTOR TO START A NEW ONE. ONCE SHE WAS ABLE TO TRY, PT STARTED REFUSING ALL CARE, MAKING WEIRD NOISES, MAKING FUN OF OTHERS, AND DID NOT WANT TO BE TOUCHED. THIS IS UNLIKE PT FROM PAST NIGHT AND A HALF. BLOOD SUGAR WNL. NOTIFIED DR WITH NO NEW ORDERS NOTED. NOTED THIS IS HOW PT WAS A COUPLE NIGHTS AGO. WILL CONTINUE TO MONITOR.
[2019-01-11 16:37] LABS: HEMATOCRIT 35.8 % (37.0-47.0); HEMOGLOBIN 12.1 gm/dL (12.0-15.0); MCH 29.9 pg (26.0-34.0); MCHC 33.9 g/dL (28.0-37.0); MCV 88.1 fL (80.0-100.0); MPV 7.5 fl. (7.2-11.1); RBC 4.07 mil/uL (4.20-5.00); RDW-CV 14.5 % (10.5-14.5); WBC 7.3 thou/uL (4.0-11.0)
[2019-01-11 16:45] LABS: CALCIUM 8.7 mg/dL (8.5-10.1); CREATININE 0.8 mg/dL (0.6-1.3); MAGNESIUM 1.7 mg/dL (1.8-2.4); POTASSIUM 3.7 mmol/L (3.5-5.1)
--- NOTE | 2019-01-11 17:49 | NUR ---
JERRY RESTIN IN BED. CAN BE DIFFICULT TO GET TO COOPERATE AT TIMES AD CAN BE BELIGERANT WITH STAFF. NEW IV TO R FOREARM. HOURLY ROUNDING COMPLETED FOR PATIENT SAFETY.
--- NOTE | 2019-01-11 18:17 | NUR ---
PATIENT TRANFERRED FROM 2 WEST TO ROOM 313 AT THIS TIME. REPORT RECEIVED FROM ELIO PEREIRA. NO COMPLAINTS FROM PATIENT AT THIS TIME. DINNER RECEIVED AND EATEN PRIOR TO TRANFER. BED ALARM ON FOR PATIENT SAFETY AND CALL LIGHT WITHIN REACH.
--- NOTE | 2019-01-12 06:56 | NUR ---
PATIENT WAS VERY UNCOOPERAVTIVE THIS SHIFT REFUSING HER ACCUCHECK, MEDS, AND TURNS, AND LAB. WE WERE ABLE TO CLEAN HER UP THIS MORNING AND CHANGE HER PAD BUT PATIENT STILL WAS REFUSING. PATIENT REMAINS CONFUSED. MARTÍNEZ REMAINS TO DEPENDENT DRAIN BUT PATIENT DID HAVE A TANK PUMPER PANELBOARD ON IT THIS MORNING AND WAS TRYING TO PULL IT OUT. PATIENT IS POSSIBLY GOING BACK TO [place] TODAY. WILL CONTINUE TO MONITOR.
--- NOTE | 2019-01-12 07:45 | CON ---
[address] [address] CONSULTATION Name: SVETLANA ONOFRE Room: [address] IN M.R.#: [id number] Admission: 01/08/19 Attend Phys: Jaya Buchanan MD Discharge: Date of : 50 Report #: [id number] THIS REPORT FOR: //name// CC: Jaya Majano DATE OF SERVICE: 01/11/2019 CONSULTATION: Infectious Diseases. HISTORY OF PRESENT ILLNESS: Svetlana Onofre is a 68-year-old white female who was transferred from her [facility] to acute care on 01/08/2019 because of depressed mental status. The patient was almost unresponsive. At the facility, they had noted the patient was having fever and cough. She had been started on azithromycin. The patient has been treated with azithromycin, vancomycin, Rocephin and then changed to cefdinir. She did have a positive blood culture, positive urine culture and abnormal chest x-ray. Infectious disease consultation was requested to assist with the evaluation and management. PAST MEDICAL HISTORY: Significant for abnormal mental status. The patient has a history of depression, schizophrenia and at one point there was a diagnosis of MR, but it is unclear if that was mental retardation or mitral regurgitation. The patient has a history of diabetes with hypertension and hyperlipidemia. She has chronic low back pain, history of urinary tract infections. ALLERGIES: Per her chart allergic to PENICILLIN and BACTRIM. SOCIAL HISTORY: She is unmarried. She describes her family as brothers and sisters. She is a chronic resident of a [facility] facility. She denies ever using tobacco or alcohol. REVIEW OF SYSTEMS: Somewhat limited as the patient is not a reliable historian. She does answer questions. The patient says that she feels pretty much back to her baseline. She denies any pain. She denies any headache, sinus congestion, sore throat, trouble swallowing. The patient denies cough, chest pain, shortness of breath. She is on oxygen, I am not sure if this is normal for her or not. The patient denies nausea, vomiting, abdominal pain, diarrhea or constipation. She denies any cardiac symptoms. The patient says that she has no control of her urine and that it hammonds, but this is normal for her. She currently has a Herring catheter in place. The patient denies pain in her extremities. She notes that she is a non-ambulator, in bed all the time, but cannot tell me why she is unable to walk. PHYSICAL EXAMINATION: GENERAL: The patient appears older than her stated age, alert, [place] [address] CONSULTATION Name: SVETLANA ONOFRE Room: [address] IN ..#: [id number] Admission: 01/08/19 Attend Phys: Jaya Buchanan MD Discharge: Date of : 50 Report #: [id number] VITAL SIGNS: Show the patient had a temperature of 37.8 in the ER, but has been afebrile since then. SKIN: Shows no rash, lesions nor exanthem. There are no wounds. ENT: Negative. The patient seems mentally slow, but alert and able to answer questions. HEART: Sounds S1, S2. CHEST: Breath sounds are coarse with rhonchi. I cannot appreciate any rales. I could not get the patient to sit up for me to take a good listen to her back. ABDOMEN: Belly is obese, but soft and nontender. No mass nor organomegaly could be appreciated. EXTREMITIES: The patient had no clubbing, cyanosis nor clubbing. No obvious arthritis, deformities. LABORATORY DATA: The white count is 6.1, hemoglobin has gone from 14 to 11.6 with hematocrit 34%, platelets 126,000. The electrolytes, BUN and creatinine, liver function tests are normal. The blood gas in the ER initially was pH 7.44, pCO2 38, pO2 60 on 28% oxygen. The urinalysis showed 15-25 white cells and greater than 30 bacteria on the microscopic. Urine culture has grown E. coli with sensitivity studies still pending. The blood cultures x 2 were drawn on admission, one of them is growing Gram-positive cocci in the anaerobic bottle. Two followup cultures were done on 01/09/2019 and they are so far no growth. The chest x-ray initially was interpreted as showing atelectasis or infiltrates, but a followup film on 12/2015 showed these changes had resolved. Urinary antigens for Legionella and Pneumococcus are negative. ASSESSMENT AND PLAN: In summary, we have a very debilitated lady with schizophrenia, depression, chronic pain and possible mental retardation who comes from the [facility] with mental status, which is depressed from her baseline. She was described as unresponsive in the ER, now is able to answer questions, but very slowly with very little insight. I am not too sure how different this is than her mental baseline. She was complaining of cough and had an abnormal chest x-ray, which has improved. She was on oxygen at the time of my evaluation. At this time, I believe the blood culture, most likely represents a contaminated blood culture. We have Gram-positive anaerobes in 1/4 bottles without any obvious source for anaerobic infection. We can wait for the final identification, but this will probably not be significant. Should the patient have more fever, we can repeat blood cultures. I think it is safe to stop the vancomycin at this time. The patient was complaining of cough and congestion. She still has rhonchi. Her oxygen saturation has not been checked. I wonder if the oxygen could be weaned at this time. She does not have evidence of cough currently. The x-ray does not show pneumonia. Her breath sounds are coarse and the patient may benefit from aerosolized bronchodilators. The urine probably does have E. coli infection. I do not know if the Herring catheter is chronic or something that was just [place] [address] CONSULTATION Name: SVETLANA ONOFRE Room: [address] IN [facility].#: [id number] Admission: 01/08/19 Attend Phys: Jaya Buchanan MD Discharge: Date of : 50 Report #: [id number] studies are still pending at this time. I would like to at this time discontinue the vancomycin as I think the Gram-positive cocci are probably contaminant. We can stop the azithromycin as she has received 5 days of therapy with what she got to the [facility] plus what she has received here in the hospital. I do not think the patient has a community-acquired pneumonia. I would like to change the cefdinir to Rocephin pending urine culture results. I would like to titrate the oxygen and initiate aerosolized bronchodilator therapy. The patient's mental status is pretty much back to her baseline per conversation with Dr Boswell. We should see if the paient does well on room air. We could consider returning the patient to her [facility] with a few more days of oral antibiotics for urinary tract infection. We may want to do a followup chest x-ray before she goes. If she has more fever, additional blood cultures would be indicated. I appreciate the opportunity of input in the care of this complex patient. Thank you for requesting Infectious Disease consultation. <ELECTRONICALLY SIGNED> By: Jeremiah Santamaria MD 01/12/19 0745 [id number] Santamaria MD /nt
[2019-01-12 07:55] VITALS: BP 129/76
--- NOTE | 2019-01-12 12:36 | NUR ---
SPOKE WITH DR SANCHEZ REGARDING THE ONE TIME DOSE OF GEODON ORDER. PATIENT COOPERATIVE AND CALM AT THIS TIME. DR SANCHEZ GAVE ORDER TO NOT GIVE GEODON.
[2019-01-12 15:56] LABS: ABSOLUTE BASOPHILS 0.1 thou/uL (0.0-0.2); ABSOLUTE EOSINOPHILS 0.3 thou/uL (0.0-0.7); ABSOLUTE LYMPHOCYTES 1.4 thou/uL (0.8-5.3); ABSOLUTE MONOCYTES 0.7 thou/uL (0.0-1.2); ABSOLUTE NEUTROPHILS 4.2 thou/uL (1.6-8.1); BASOPHILS 0.8 %; HEMATOCRIT 38.7 % (37.0-47.0); HEMOGLOBIN 13.2 gm/dL (12.0-15.0); LYMPHOCYTES 21.5 %; MCH 29.6 pg (26.0-34.0); MCHC 34.1 g/dL (28.0-37.0); MCV 86.9 fL (80.0-100.0); MONOCYTES 10.1 %; MPV 7.7 fl. (7.2-11.1); NUCLEATED RBCS 0 /100WBC; PLATELET COUNT* 171 thou/uL (150-400); POLYS 63.6 %; RBC 4.46 mil/uL (4.20-5.00); RDW-CV 14.3 % (10.5-14.5); WBC 6.6 thou/uL (4.0-11.0)
[2019-01-12 16:00] VITALS: BP 131/65
[2019-01-12 16:11] LABS: ALBUMIN 3.4 g/dL (3.4-5.0); CREATININE 0.9 mg/dL (0.6-1.3); POTASSIUM 3.6 mmol/L (3.5-5.1); TOTAL BILIRUBIN 0.4 mg/dL (<0.1-1.0); TOTAL PROTEIN 6.8 g/dL (6.4-8.2)
--- NOTE | 2019-01-12 19:00 | NUR ---
PATIENT HAS BEEN A/O TO PERSON, CONFUSED THIS SHIFT. PATIENT UNCOOPERATIVE THIS AM AND DR SANCHEZ MADE AWARE. PATIENT BECAME MORE COOPERATIVE AND AGREEABLE LATER IN THE AM. PATIENT TOOK MEDS IN PUDDING AND IV ANTIBIOTICS INFUSED. PATIENT UP TO CHAIR FOR MOST OF SHIFT. MARTÍNEZ PATENT AND DRAINING. PATIENT TOLERATING DIET. WORKED WITH PHYSICAL THERAPY THIS AFTERNOON. PATIENT SLEEPING IN CHAIR AT PRESENT TIME. FALL PRECAUTIONS IN PLACE. HOULRY ROUNDING COMPLETED. CALL LIGHT WITHIN REACH. WILL CONTINUE WITH PLAN OF CARE.
[2019-01-12 20:00] VITALS: BP 119/64
--- NOTE | 2019-01-13 07:31 | NUR ---
PATIENT SLEPT MOST OF THE NIGHT. PATIENT WAS MUCH MORE COOPERATIVE THIS SHIFT. IV ANTIBIOTIC WAS GIVEN ORDERED. MARTÍNEZ REMAINS TO DEPENDENT DRAIN. PATIENT HAD TWO LARGE LOOSE STOOLS THIS SHIFT. WILL CONTINUE TO MONITOR.
[2019-01-13 10:00] VITALS: BP 130/67
[2019-01-13 10:15] VITALS: BP 130/67
[2019-01-13 17:16] VITALS: BP 165/83
--- NOTE | 2019-01-13 19:33 | NUR ---
PATIENT HAS BEEN A/O TO SELF THIS SHIFT. HAS DENIED PAIN OR SHORNTESS OF AIR. PATIENT LABILE WITH MOODS THIS SHIFT. REFUSED BLOOD SUGAR AT NOON. REFUSED TURNS THROUGHOUT THE SHIFT. PATIENT REFUSED TO GET TO CHAIR. INCONTINENT OF STOOL X 1, [facility] PROVIDED. PATIENT'S SISTER HERE THIS AFTERNOON TO VISIT. HOURLY ROUNDING COMPLETED. FALL PRECAUTIONS IN PLACE. CALL LIGHT WITHIN REACH. WILL CONTINUE WITH PLAN OF CARE.
[2019-01-13 21:45] VITALS: BP 129/59
--- NOTE | 2019-01-14 05:50 | NUR ---
PATIENT SLEPT MOST OF THE NIGHT. PATIENT WAS VERY COOPERATIVE THIS SHIFT AND TOOK HER MEDS. MARTÍNEZ REMAINS TO DEPENDENT DRAIN. IV REMAINS SALINE LOCKED. WILL CONTINUE TO MONITOR.
--- NOTE | 2019-01-14 09:52 | NUR ---
PATIENT REFUSED VITALS, STARTED HITTING AND YELLING. ALSO REFUSED MEDICATIONS THIS AND BREAKFAST. WHEN LAB CAME TO DRAW BLOOD PATIENT REFUSED THAT WELL. WILL NOTIFY PROVIDER WHEN THEY ROUND.
[2019-01-14] MEDS ORDERED: MACROBID 100 M100 M1 PO (12:08)
--- NOTE | 2019-01-14 12:46 | NUR ---
Pt to dc home to [facility] today. JOAQUIN called [facility] and spoke with nurse who is aware and accepting of pt home today. JOAQUIN faxed dc summary/orders/med list to [facility]. JOAQUIN called pt PA office and informed of pt dc home from hospital today. JOAQUIN called pt family sales representative [employer] Sofía Angel and left message regarding pt dc home today. Pt nurse aware and pt chart copied. [facility] ph [phone] fax [phone] JOAQUIN arranged for van transport through [employer] at [phone] to citrus picker between 2:30 and 3:00.
[2019-01-14 13:44] VITALS: BP 129/59
[2019-01-14 15:49] VITALS: BP 129/59
--- NOTE | 2019-01-14 15:58 | NUR ---
PATIENT IS ALERT TODAY BUT UNCOOPERATIVE. REFUSED VITALS, MEDICATIONS AND THE PROVIDERS ASSESSMENT. PATIENT IS BEING DISCHARGED TO HOME. PATIENT REMOVED IV THIS MORNING SO IV MEDICATIONS WERE NOT ABLE TO BE GIVEN. DR MONET WAS CALLED AND MEDICATION WAS CHANGED TO ORAL. MARTÍNEZ WAS REMOVED BEFORE BEING DISCHARGED BACK TO [facility]. PATIENT WAS UPSET TODAY ABOUT MANY THINGS. PATIENT IS BEING DISCHARGED BACK TO HOME AT [facility]. LEFT VIA WHEELCHAIR WITH TRANSPORTER.
== END 2019-01-14 15:40 | DRG 871 ==
LOC: M.ERS 16:57 → M.2W 18:54 → M.TBA-ER 18:54 → M.2W 20:15 → M.3W 01-11 18:05
PROVIDERS: Internal Medicine; Personal Emergency Response Attendant; ADMIT Internal Medicine
DX: A41.51 Sepsis due to Escherichia coli [E. coli] (principal); G92 Toxic encephalopathy; J96.01 Acute respiratory failure with hypoxia; J15.9 Unspecified bacterial pneumonia; N39.0 Urinary tract infection, site not specified; G89.29 Other chronic pain; E11.40 Type 2 diabetes mellitus with diabetic neuropathy, unspecified; K21.9 Gastro-esophageal reflux disease without esophagitis; I10 Essential (primary) hypertension; E78.5 Hyperlipidemia, unspecified; M19.90 Unspecified osteoarthritis, unspecified site; F32.9 Major depressive disorder, single episode, unspecified; F20.9 Schizophrenia, unspecified; E83.42 Hypomagnesemia; F41.1 Generalized anxiety disorder; I34.0 Nonrheumatic mitral (valve) insufficiency; B96.20 Unspecified Escherichia coli [E. coli] as the cause of diseases classified elsewhere; Z88.2 Allergy status to sulfonamides; Z88.0 Allergy status to penicillin; Z88.8 Allergy status to other drugs, medicaments and biological substances; Z79.82 Long term (current) use of aspirin; Z79.899 Other long term (current) drug therapy; Z79.4 Long term (current) use of insulin; Z87.01 Personal history of pneumonia (recurrent); Z90.710 Acquired absence of both cervix and uterus; Z82.49 Family history of ischemic heart disease and other diseases of the circulatory system

== ENCOUNTER 2019-02-11 18:25 | Observation (INO) | payer MEDICARE, MEDICAID ==
[~2019-02-11] VITALS: Ht 160 cm; Wt 114.3 kg
[~2019-02-11 18:25] MED LIST changes: -BENZTROPINE MES1 MG PO; +CLARITIN10 MG PO; +FAMOTIDINE20 MG PO; +HALLS COUGH DR1 EACH PO; +IPRAT-ALBUT 0.5-3 ML INH; +MACROBID 100 M100 M1 PO; +MUCINEX600 MG PO; +NORCO 5-325 TA1 EACH PO; +ROBAXIN 750 MG750 M1 PO; +ROBITUSSIN100 MG/53 PO; +SELSUN BLUE207 M2 TOP; +TOPROL XL50 MG PO
[2019-02-11 18:33] VITALS: BP 161/78
[2019-02-11] MEDS ORDERED: NORCO 5-325 TA1 EAC1 PO (18:43)
[2019-02-11 18:50] LABS: ABSOLUTE EOSINOPHILS 0.2 thou/uL (0.0-0.7); ABSOLUTE LYMPHOCYTES 1.4 thou/uL (0.8-5.3); ABSOLUTE MONOCYTES 0.7 thou/uL (0.0-1.2); ABSOLUTE NEUTROPHILS 6.7 thou/uL (1.6-8.1); BASOPHILS 0.4 %; EOSINOPHILS 2.5 %; HEMATOCRIT 38.4 % (37.0-47.0); HEMOGLOBIN 13.3 gm/dL (12.0-15.0); LYMPHOCYTES 15.3 %; MCH 29.6 pg (26.0-34.0); MCHC 34.7 g/dL (28.0-37.0); MCV 85.4 fL (80.0-100.0); MPV 7.1 fl. (7.2-11.1); NUCLEATED RBCS 0 /100WBC; PLATELET COUNT* 169 thou/uL (150-400); POLYS 73.8 %; RBC 4.49 mil/uL (4.20-5.00); RDW-CV 14.6 % (10.5-14.5); WBC 9.1 thou/uL (4.0-11.0)
[2019-02-11 18:58] LABS: CREATININE 0.8 mg/dL (0.6-1.3); POTASSIUM 3.8 mmol/L (3.5-5.1)
[2019-02-11 19:03] LABS: ALBUMIN 3.6 g/dL (3.4-5.0); TOTAL BILIRUBIN 0.4 mg/dL (<0.1-1.0); TOTAL PROTEIN 6.5 g/dL (6.4-8.2)
[2019-02-11 19:52] LABS: URINE BILIRUBIN NEGATIVE (Negative); URINE BLOOD NEGATIVE (Negative); URINE CLARITY CLEAR; URINE COLOR YELLOW; URINE GLUCOSE-RANDOM NEGATIVE (Negative); URINE KETONES NEGATIVE (Negative); URINE LEUKOCYTES-REFLEX NEGATIVE (Negative); URINE NITRITE-REFLEX NEGATIVE (Negative); URINE PROTEIN NEGATIVE (Negative); URINE SPECIFIC GRAVITY <= 1.005 (1.005-1.030); URINE UROBILINOGEN 0.2 E.U./dl (0.2-1.0)
[2019-02-11 20:04] LABS: AMP/METHAMP Negative (Negative); BARBITURATES Negative (Negative); BENZODIAZEPINES Negative (Negative); COCAINE Negative (Negative); METHADONE Negative (Negative); OPIATES Negative (Negative); PCP Negative (Negative); THC Negative (Negative)
[2019-02-11 20:04] LABS: ACETAMINOPHEN < 2 ug/mL (10-30); SALICYLATE < 2.8 mg/dL (2.8-20.0)
[2019-02-11 22:00] VITALS: BP 154/74
--- NOTE | 2019-02-11 22:00 | NUR ---
RECEIVED REPORT FROM ER AND ADMITTED TO ROOM. PT PLEASANT AND COOPERATIVE. ALERT AND ANSWERING QUESTIONS. NO SKIN ISSUES NOTED. TELEMETRY APPLIED SHOWING SB. BLOOD SUGAR 111. SEE ADMISSION ASSESSMENT AND HX. WILL CONT TO MONITOR AND ASSIST NEEDED.
[2019-02-12 00:36] VITALS: BP 126/63
[2019-02-12 04:00] VITALS: BP 129/72
[2019-02-12 08:00] VITALS: BP 130/61
[2019-02-12 09:15] LABS: CALCIUM 8.7 mg/dL (8.5-10.1); CREATININE 0.7 mg/dL (0.6-1.3); POTASSIUM 3.9 mmol/L (3.5-5.1)
[2019-02-12 11:07] LABS: GLYCOHEMOGLOBIN (HGB A1C) 6.5 % (4.8-5.6)
--- NOTE | 2019-02-12 11:29 | EKG ---
[place] [address] ELECTROCARDIOGRAM REPORT Name: DARSHANA ONOFRE Room: [address] ADM IN .R.#: [id number] Admission: 02/11/19 Attend Phys: Jayla Aponte MD Discharge: Date of : 50 Report #: [id number] THIS REPORT FOR: //name// [facility] ED Test Date: 2019-02-11 Test Time: 19:27:54 Pat Name: DARSHANA ONOFRE Department: Room: [facility] Gender: F Java Consultant: KYRA : 1950 Requested By: Diane Lloyd Order Number: [id number] MD: Aaron Acosta Measurements Intervals [place] Rate: 56 P: 39 ID: 166 QRS: -29 QRSD: 101 T: -2 QT: 463 QTc: 447 Interpretive Statements Sinus rhythm Inferior infarct, old Consider anterior infarct Compared to ECG 01/08/2019 17:05:10 Prolonged QT interval no longer present Myocardial infarct finding still present Electronically Signed On 02-12-2019 11:29:01 CDT by Aaron Acosta [email or web address] <ELECTRONICALLY SIGNED> By: Aaron Acosta MD, [facility] 02/12/19 1129 26 26 Aaron Acosta MD, [facility] /EPI
--- NOTE | 2019-02-12 11:30 | NUR ---
RECEIVED REPORT FROM [facility] AND ASSUMED CARE OF PT @ 5864.PT IS A/O X3,VSS,TRACING SR ON THE MONITOR.IV PATENT AND SALINE LOCKED.MARTÍNEZ SECURE AND PATENT.PT IS CALM AND COOPERATIVE WITH NO C/O PAIN.PT GOT UP TO CHAIR FOR BREAKFAST.PT LEFT RESTING IN CHAIR. CALL LIGHT AND FALL PRECAUTIONS IN PLACE.WILL CONTINUE TO MONITOR.YULIA FROM [facility] CALLED FOR AN UPDATE ON THE PT.
[2019-02-12 12:19] VITALS: BP 140/75
--- NOTE | 2019-02-12 15:15 | NUR ---
Pt is A&O. Resides at [facility], plans to return at [facility]. CM spoke with Zina at [facility], they are able to accept Pt back. Zina informs that Pt has been using her wc more at [facility], since her last hospitalization. Pt is able to complete her own transfers with [facility]. Pt has a walker that she can use as needed. Hx of [facility]. No hx of SNF. CM to assist with DC planning. Pt has a TRACEE JENNINGS who that will need to be contacted at [facility], . [facility] p:[phone] f:[phone]
[2019-02-12 15:50] VITALS: BP 147/78
--- NOTE | 2019-02-12 17:06 | NUR ---
VSS.CARDIAC MONITORING IN PLACE WITH NO CHANGES.PT PROGRESSING TOWARDS GOALS.PT WILL POTENTIALLY DISCHARGE TOMORROW PER DOCTOR.NO C/O PAIN.IV PATENT AND SALINE LOCKED.MARTÍNEZ SECURE AND PATENT.Q1 HOUR ACCU CHECK COMPLETED.ISOLATION INITIATED AND MAINTAINED FOR ESBL.PT SAT UP IN CHAIR FOR MEALS.HOURLY ROUNDING COMPLETED FOR PT SAFETY.CALL LIGHT AND FALL PRECAUTIONS IN PLACE.WILL CONTINUE TO MONITOR FOR DURATION OF SHIFT.
[2019-02-12 20:10] VITALS: BP 130/60
--- NOTE | 2019-02-13 04:50 | NUR ---
PT CARE ASSUMED AT 1930. SAT MAINTAINED IN RA. ALERT AND ORIENTED X3. CALL LIGHT WITHIN REACH AND BED IN LOW POSITION. DENIES PAIN AND SOB. HOURLY ROUNDING DONE FOR PT SAFETY.
[2019-02-13 05:19] LABS: ABSOLUTE BASOPHILS 0.1 thou/uL (0.0-0.2); ABSOLUTE EOSINOPHILS 0.3 thou/uL (0.0-0.7); ABSOLUTE LYMPHOCYTES 2.4 thou/uL (0.8-5.3); ABSOLUTE MONOCYTES 0.7 thou/uL (0.0-1.2); ABSOLUTE NEUTROPHILS 5.1 thou/uL (1.6-8.1); BASOPHILS 0.6 %; EOSINOPHILS 3.5 %; HEMATOCRIT 38.2 % (37.0-47.0); HEMOGLOBIN 13.2 gm/dL (12.0-15.0); LYMPHOCYTES 27.9 %; MCH 29.9 pg (26.0-34.0); MCHC 34.6 g/dL (28.0-37.0); MCV 86.4 fL (80.0-100.0); MONOCYTES 8.7 %; MPV 7.6 fl. (7.2-11.1); NUCLEATED RBCS 0 /100WBC; PLATELET COUNT* 170 thou/uL (150-400); POLYS 59.3 %; RBC 4.43 mil/uL (4.20-5.00); RDW-CV 14.8 % (10.5-14.5); WBC 8.5 thou/uL (4.0-11.0)
[2019-02-13 05:32] LABS: ANION GAP 11 mmol/L (7-16); BUN 6 mg/dL (7-18); CALCIUM 8.9 mg/dL (8.5-10.1); CHLORIDE 96 mmol/L (98-107); CO2 25 mmol/L (21-32); CREATININE 0.6 mg/dL (0.6-1.3); GLUCOSE 121 mg/dL (70-99); POTASSIUM 3.7 mmol/L (3.5-5.1); SODIUM 132 mmol/L (136-145)
[2019-02-13 05:39] LABS: SERUM ASSESSMENT Clear
[2019-02-13 05:52] LABS: CHOLESTEROL 119 mg/dL (<200); HDL CHOLESTEROL 34 mg/dL (>40); LDL CHOLESTEROL 62 mg/dL (<100); TC:HDL 3.5 Ratio (Not establshd); TRIGLYCERIDE 115 mg/dL (<150); VLDL 23 mg/dL (<40)
[2019-02-13 08:00] VITALS: BP 141/73
--- NOTE | 2019-02-13 11:00 | NUR ---
RECEIVED REPORT FROM SOF[facility] AND ASSUMED CARE OF PT @ 1353.PT IS A/O X4 WITH FLAT AFFECT,VSS,MED-SURG STATUS.IV PATENT AND SALINE LOCKED.MARTÍNEZ SECURE AND PATENT.ISOLATION MAINTAINED FOR ESBL.PT IS CALM AND COOPERATIVE WITH NO C/O PAIN.PT LEFT RESTING IN CHAIR WITH CALL LIGHT AND FALL PRECAUTIONS IN PLACE.WILL CONTINUE TO MONITOR.
[2019-02-13] MEDS ORDERED: LYRICA 75 MG CA75 MG PO (11:53)
[2019-02-13] MEDS ORDERED: PEPCID20 MG PO (11:53)
[2019-02-13] MEDS ORDERED: LANTUS100 UNIT/M SUBQ (11:53)
--- NOTE | 2019-02-13 13:33 | NUR ---
CM updated [facility] Medical Director, Mio Posey, with the TRACEE JENNINGS's office of Pt's dc back to [facility]
--- NOTE | 2019-02-13 13:41 | NUR ---
D/C CARROTING MACHINE OFFBEARER INFORMED OF PATIENT'S DISCHARGE AND NEED TO FAX PATIENT'S CLINICAL INFO AND D/C ORDERS TO [facility] AND [facility] OFFICE. D/C CARROTING MACHINE OFFBEARER FAXED ALL INFO TO BOTH. CM WILL REMAIN AVAILABLE TO ASISST AND FOLLOW NEEDED.
[2019-02-13] MEDS ORDERED: BENZTROPINE MES1 MG PO (14:29)
[2019-02-13 14:30] VITALS: BP 141/73
--- NOTE | 2019-02-13 14:59 | NUR ---
PT OK FOR DISCHARGE.PAPERWORK COMPLETED AND GIVEN TO TRANSPORATION TRAP SETTER.MARTÍNEZ REMOVED.IV REMOVED.REPORT CALLED TO YULIA AT [facility].ALL PERSONAL BELONGINGS PACKED AND TAKEN WITH PT.PT WHEELED OUT BY WHEELCHAIR VAN.
--- NOTE | 2019-02-13 15:05 | NUR ---
PLEASE NOTE PT DISCHARGED TO [facility] BEFORE P.T. EVAL COULD BE COMPLETED.
== END 2019-02-13 15:49 | disposition home or self-care (01) ==
LOC: M.ERS 18:25 → M.2W 20:55 → M.TBA-ER 20:55 → M.2W 21:56
PROVIDERS: Family Medicine; Nurse Practitioner Family; Personal Emergency Response Attendant; Physician Assistant; ADMIT Internal Medicine
DX: E11.649 Type 2 diabetes mellitus with hypoglycemia without coma (principal); G93.41 Metabolic encephalopathy; E11.40 Type 2 diabetes mellitus with diabetic neuropathy, unspecified; F20.9 Schizophrenia, unspecified; M19.90 Unspecified osteoarthritis, unspecified site; E87.1 Hypo-osmolality and hyponatremia; K21.9 Gastro-esophageal reflux disease without esophagitis; I10 Essential (primary) hypertension; I34.0 Nonrheumatic mitral (valve) insufficiency; G89.29 Other chronic pain; M54.9 Dorsalgia, unspecified; F32.9 Major depressive disorder, single episode, unspecified; Z79.82 Long term (current) use of aspirin; Z79.4 Long term (current) use of insulin; Z79.899 Other long term (current) drug therapy

== ENCOUNTER 2019-04-09 10:55 | Emergency (ER) | payer MEDICARE, MEDICAID ==
[~2019-04-09] VITALS: Ht 154.9 cm; Wt 109.3 kg
[~2019-04-09 10:55] MED LIST changes: +BENZTROPINE MES1 MG PO; +NORCO 5-325 TA1 EAC1 PO; +PEPCID20 MG PO
[2019-04-09] MEDS ORDERED: GERI-LANTA LIQ355 M1 PO (11:06)
[2019-04-09] MEDS ORDERED: DOXYCYCLINE 10100 MG PO (11:07)
[2019-04-09] MEDS ORDERED: ANBESOL9 GM PO (11:07)
[2019-04-09 11:28] LABS: ABSOLUTE EOSINOPHILS 0.2 thou/uL (0.0-0.7); ABSOLUTE LYMPHOCYTES 1.5 thou/uL (0.8-5.3); ABSOLUTE MONOCYTES 0.6 thou/uL (0.0-1.2); ABSOLUTE NEUTROPHILS 6.1 thou/uL (1.6-8.1); BASOPHILS 0.6 %; EOSINOPHILS 1.8 %; HEMATOCRIT 41.5 % (37.0-47.0); HEMOGLOBIN 14.5 gm/dL (12.0-15.0); LYMPHOCYTES 17.4 %; MCH 29.4 pg (26.0-34.0); MONOCYTES 7.3 %; MPV 7.4 fl. (7.2-11.1); NUCLEATED RBCS 0 /100WBC; PLATELET COUNT* 234 thou/uL (150-400); POLYS 72.9 %; RBC 4.94 mil/uL (4.20-5.00); RDW-CV 14.3 % (10.5-14.5); WBC 8.4 thou/uL (4.0-11.0)
[2019-04-09 11:39] LABS: CALCIUM 9.1 mg/dL (8.5-10.1); CREATININE 0.8 mg/dL (0.6-1.3); POTASSIUM 3.8 mmol/L (3.5-5.1)
[2019-04-09 11:43] LABS: ALBUMIN 3.8 g/dL (3.4-5.0); TOTAL BILIRUBIN 0.5 mg/dL (<0.1-1.0); TOTAL PROTEIN 6.8 g/dL (6.4-8.2)
[2019-04-09 12:18] LABS: URINE BILIRUBIN NEGATIVE (Negative); URINE BLOOD NEGATIVE (Negative); URINE CLARITY CLEAR; URINE COLOR YELLOW; URINE GLUCOSE-RANDOM NEGATIVE (Negative); URINE KETONES NEGATIVE (Negative); URINE LEUKOCYTES-REFLEX NEGATIVE (Negative); URINE NITRITE-REFLEX NEGATIVE (Negative); URINE PROTEIN TRACE (Negative); URINE SPECIFIC GRAVITY 1.015 (1.005-1.030); URINE UROBILINOGEN 0.2 E.U./dl (0.2-1.0)
[2019-04-09 14:36] VITALS: BP 127/74
== END 2019-04-09 14:37 | disposition home or self-care (01) ==
LOC: M.ERS 10:55
PROVIDERS: Personal Emergency Response Attendant
DX: R10.84 Generalized abdominal pain (principal); G89.29 Other chronic pain; M54.9 Dorsalgia, unspecified; I10 Essential (primary) hypertension; E11.40 Type 2 diabetes mellitus with diabetic neuropathy, unspecified; K21.9 Gastro-esophageal reflux disease without esophagitis; E78.5 Hyperlipidemia, unspecified; M19.90 Unspecified osteoarthritis, unspecified site; F20.9 Schizophrenia, unspecified; Z90.710 Acquired absence of both cervix and uterus; F32.9 Major depressive disorder, single episode, unspecified; Z79.4 Long term (current) use of insulin; Z88.0 Allergy status to penicillin; Z88.2 Allergy status to sulfonamides; Z88.6 Allergy status to analgesic agent

== ENCOUNTER 2019-08-27 12:50 | Observation (INO) | payer MEDICARE, MEDICAID ==
[~2019-08-27] VITALS: Ht 160 cm; Wt 102.1 kg
[~2019-08-27 12:50] MED LIST changes: +ANBESOL9 GM PO; +GERI-LANTA LIQ355 M1 PO
[2019-08-27 12:52] VITALS: BP 118/69
--- NOTE | 2019-08-27 13:11 | NUR ---
RN ATTEMPTED TO CALL PT'S LEGAL GUARDIAN YULIA ROBISON AT [phone] WITH NO ANSWER. RN LEFT VOICEMAIL AND ASKED FOR RETURN CALL TO OBTAIN CONSENTS.
[2019-08-27 13:23] LABS: ABSOLUTE BASOPHILS 0.1 thou/uL (0.0-0.2); ABSOLUTE EOSINOPHILS 0.2 thou/uL (0.0-0.7); ABSOLUTE LYMPHOCYTES 1.3 thou/uL (0.8-5.3); ABSOLUTE MONOCYTES 0.6 thou/uL (0.0-1.2); ABSOLUTE NEUTROPHILS 5.3 thou/uL (1.6-8.1); BASOPHILS 0.8 %; EOSINOPHILS 2.7 %; HEMATOCRIT 34.5 % (37.0-47.0); HEMOGLOBIN 12.1 gm/dL (12.0-15.0); MCH 29.7 pg (26.0-34.0); MCHC 35.2 g/dL (28.0-37.0); MCV 84.4 fL (80.0-100.0); MONOCYTES 7.4 %; MPV 6.7 fl. (7.2-11.1); NUCLEATED RBCS 0 /100WBC; PLATELET COUNT* 256 thou/uL (150-400); POLYS 71.1 %; RBC 4.09 mil/uL (4.20-5.00); RDW-CV 14.2 % (10.5-14.5); WBC 7.5 thou/uL (4.0-11.0)
[2019-08-27 13:31] LABS: CALCIUM 8.5 mg/dL (8.5-10.1); CREATININE 0.9 mg/dL (0.6-1.3); POTASSIUM 3.9 mmol/L (3.5-5.1)
[2019-08-27 13:41] LABS: ALBUMIN 3.5 g/dL (3.4-5.0); MAGNESIUM 1.8 mg/dL (1.8-2.4); TOTAL BILIRUBIN 0.4 mg/dL (<0.1-1.0); TOTAL PROTEIN 6.8 g/dL (6.4-8.2)
[2019-08-27 17:30] VITALS: BP 122/59
--- NOTE | 2019-08-27 18:22 | NUR ---
PT ADMITTED TO ROOM FROM ER, APPPEARS ALERT O X 4, DENIES CHEST PAIN, SOB, PAIN OR DISCOMFOR, PIV R AC APPEARS PATENT, STATES CHEST PAIN RELIEVED C SL NITRO IN ER, SR ON MONTIOR WITH ABNORMAL T WAVES, NPO UNTIL SEEN BY CARDIOLGY
[2019-08-27 18:44] VITALS: BP 132/60
[2019-08-27 20:00] VITALS: BP 133/67
[2019-08-28] VITALS: BP 123/58
[2019-08-28 02:05] LABS: AMP/METHAMP Negative (Negative); OPIATES Negative (Negative); PCP Negative (Negative); THC Negative (Negative)
[2019-08-28 03:42] LABS: HEMATOCRIT 34.9 % (37.0-47.0); HEMOGLOBIN 12.2 gm/dL (12.0-15.0); MCHC 34.9 g/dL (28.0-37.0); MCV 85.9 fL (80.0-100.0); MPV 6.8 fl. (7.2-11.1); RBC 4.06 mil/uL (4.20-5.00); RDW-CV 14.3 % (10.5-14.5); WBC 6.8 thou/uL (4.0-11.0)
[2019-08-28 04:00] VITALS: BP 149/62
[2019-08-28 04:06] LABS: ANION GAP 10 mmol/L (7-16); BUN 11 mg/dL (7-18); CALCIUM 9.1 mg/dL (8.5-10.1); CHLORIDE 101 mmol/L (98-107); CHOLESTEROL 110 mg/dL (<200); CO2 25 mmol/L (21-32); CREATININE 0.8 mg/dL (0.6-1.3); GLUCOSE 66 mg/dL (70-99); HDL CHOLESTEROL 38 mg/dL (>40); LDL CHOLESTEROL 57 mg/dL (<100); POTASSIUM 3.4 mmol/L (3.5-5.1); SODIUM 136 mmol/L (136-145); TC:HDL 2.9 Ratio (Not establshd); TRIGLYCERIDE 78 mg/dL (<150); VLDL 16 mg/dL (<40)
[2019-08-28 04:10] LABS: SERUM ASSESSMENT Clear
--- NOTE | 2019-08-28 06:50 | NUR ---
ASSUMED CARE OF PT AFTER REPORT AT 1930. PT A&OX3-4. FORGETFUL AT TIMES. VSS. PHYSICAL ASSESSMENT COMPLETED AND CHARTED. PT ON RA. PT TRACING SR ON TELE. PT UPSTANDBY TO RESTROOM. PT DENIES ANY PAIN OR DISCOMFORT. PT INSTRUCTED ON NPO POST MIDNIGHT FOR CARDIO CONSULT. COMMUNICATES UNDERSTANDING. URINE SPECIMEN SENT TO LAB. PT ABLE TO SLEEP WELL ON BED. CALL LIGHT WITHIN REACH.
--- NOTE | 2019-08-28 08:00 | NUR ---
PT RESTING IN BED , APPEARS ALERT O X 4, FORGETFUL, DENIES CHEST PAIN, SOB, PAIN OR DISCOMFORT, O2 SATS 98% ON TA, PI R AC APPEARS PATENT
[2019-08-28 08:02] VITALS: BP 109/56
[2019-08-28 10:50] LABS: BARBITURATES Negative (Negative)
[2019-08-28 10:51] LABS: BENZODIAZEPINES Negative (Negative)
[2019-08-28 10:52] LABS: COCAINE Negative (Negative); METHADONE Negative (Negative)
[2019-08-28 13:23] VITALS: BP 109/56
--- NOTE | 2019-08-28 13:32 | NUR ---
PT BEING D/C BACK TO [facility], REPORT GIVEN TO DOROTEO Vasquez
[2019-08-28 13:43] VITALS: BP 109/56
--- NOTE | 2019-08-29 12:19 | EKG ---
[place] [address] ELECTROCARDIOGRAM REPORT Name: DARSHANA ONOFRE Room: [address]R.#: [id number] Admission: 08/27/19 Attend Phys: Caron Spence Discharge: 08/28/19 Date of : 50 Report #: [id number] THIS REPORT FOR: //name// [facility] ED Test Date: 2019-08-27 Test Time: 12:55:00 Pat Name: DARSHANA ONOFRE Department: Room: [facility] Gender: F Data Processing Clerk: TM : 1950 Requested By: Ray Ellis Order Number: [id number] MD: Jeremiah Swanson Measurements Intervals [place] Rate: 94 P: 26 ND: 166 QRS: -38 QRSD: 90 T: 21 QT: 394 QTc: 493 Interpretive Statements Sinus rhythm Abnormal R-wave progression, late transition Inferior infarct, old Baseline wander in lead(s) V6 Compared to ECG 02/11/2019 19:27:54 No significant changes Electronically Signed On 08-29-2019 12:18:35 PRINTER TECHNICIAN by Jeremiah Swanson [email or web address] <ELECTRONICALLY SIGNED> By: Jeremiah Swanson MD, [facility] 08/29/19 1218 1255 1255 Jeremiah Swanson MD, [facility] /EPI
--- NOTE | 2019-08-29 12:44 | CON ---
[address] [address] CONSULTATION Name: DARSHANA ONOFRE Room: [address] [place]#: [id number] Admission: 08/27/19 Attend Phys: Caron Spence Discharge: 08/28/19 Date of : 50 Report #: [id number] THIS REPORT FOR: //name// CC: Caron Sheldon DATE OF SERVICE: 08/28/2019 CARDIOLOGY CONSULTATION HISTORY OF PRESENT ILLNESS: The patient is a 69-year-old single white female who I was asked to see in the hospital today after she complained of chest pain. The patient has no previous history of heart disease. She has an extensive past medical history. She apparently lives in a senior care for the past 15 years. Her past history includes a diagnosis of depression, psychosis. She is not very active and uses a walker. She is also morbidly obese, being 5 feet 3 inches, 220 pounds. She has a history of hypertension, diabetes. She has a history of dementia. She is a do not resuscitate status at the senior care. She has actually been admitted here to [facility] on several occasions. She was here in 2016 after she fell. She was here in 2016 with a low blood sugar. She was here in 2017 after a fall. She has a long history of weakness. She was here in 2018 with pneumonia and shortness of breath. She is felt to have encephalopathy. She has chronic back pain. She was here in December of this year with urinary tract infection and was confused. She has chronic back pain. She was brought to the Emergency Room by paramedics yesterday. She was lying in bed about 10 in the morning when she describes a squeezing in her chest. She denied the pain being related to food. She denied any cough. She denied any trauma to her chest. There is no rash. She denies exertional dyspnea. She notes occasional episodes where heart rate will increase, but she has had no recent syncope. PAST MEDICAL HISTORY: Significant for chronic back pain, hypertension, diabetes, depression. She has a history of schizophrenia. MEDICATIONS: From senior care include aspirin, Wellbutrin, potassium, TriCor, NovoLog, Abilify. ALLERGIES: SHE HAS ALLERGY TO PENICILLIN AND SULFA DRUGS. FAMILY HISTORY: Her grandfather had heart disease. SOCIAL HISTORY: She is single, never been . She has been in senior care for 15 years. No smoking or alcohol abuse. REVIEW OF SYSTEMS: She has had no history of stroke. She denies snoring at night. No history of peptic ulcer disease, asthma, kidney [place] [address] CONSULTATION Name: DARSHANA ONOFRE Room: [address] [place]#: [id number] Admission: 08/27/19 Attend Phys: Caron munoz [place] Discharge: 08/28/19 Date of : 50 Report #: [id number] PHYSICAL EXAMINATION: GENERAL: Revealed an obese elderly female lying in bed. She appeared in no distress. VITAL SIGNS: She had a blood pressure of 130/60, pulse 76. She is afebrile. HEENT: She is anicteric. Conjunctivae are pink. Mucous membranes moist. NECK: Veins do not appear distended. CHEST: Clear to auscultation. CARDIOVASCULAR: Regular rate and rhythm, no murmur. ABDOMEN: Obese. EXTREMITIES: Had no pitting edema. Dorsalis pedis pulse 1+ bilaterally. SKIN: Cool and dry. NEUROLOGIC: Nonfocal. Her workup in the Emergency Room yesterday showed a sinus rhythm, left axis, poor R-wave progression, nonspecific T-wave changes. Her chest x-ray yesterday, normal heart size, clear lung hager, otherwise unremarkable. CT scan of the head done in January of this year showed no acute abnormality. LABORATORY WORK: Sodium 136, creatinine 0.8. Liver function studies were normal. Troponins all 0.06. Cholesterol 110, triglycerides 78, HDL 38, LDL 57. TSH 2.3. White blood cell count 6.8 and hematocrit 34.9. IMPRESSION AND RECOMMENDATIONS: 1. Chest pain. Atypical for angina. No evidence of acute coronary syndrome. In light of her multiple medical problems, I would not recommend stress testing nor cardiac catheterization at this time. I would consider sending the patient back to the senior care. 2. Diabetes. The patient is on insulin. 3. Hypertriglyceridemia. The patient is on fenofibrate. 4. Schizophrenia. 5. Chronic back pain. 6. Hypertension. The patient is on prazosin. <ELECTRONICALLY SIGNED> By: Eric Yao MD, [facility] 08/29/19 1244 1041 [id number] Yao MD, [facility] /nt
[2019-08-30 03:07] LABS: GLYCOHEMOGLOBIN (HGB A1C) 6.2 % (4.8-5.6)
== END 2019-08-28 13:45 | disposition home or self-care (01) ==
LOC: M.ERS 12:50 → M.TBA-ER 14:13 → M.2W 14:13
PROVIDERS: Emergency Medicine Emergency Medical Services; ADMIT Family Medicine
DX: R07.2 Precordial pain (principal); I10 Essential (primary) hypertension; E78.5 Hyperlipidemia, unspecified; E11.9 Type 2 diabetes mellitus without complications; E11.40 Type 2 diabetes mellitus with diabetic neuropathy, unspecified; K21.9 Gastro-esophageal reflux disease without esophagitis; F32.9 Major depressive disorder, single episode, unspecified; F20.9 Schizophrenia, unspecified; M19.90 Unspecified osteoarthritis, unspecified site; F41.9 Anxiety disorder, unspecified; E66.9 Obesity, unspecified; E87.1 Hypo-osmolality and hyponatremia

== ENCOUNTER 2020-01-17 20:34 | Emergency (ER) | payer MEDICARE, MEDICAID ==
[~2020-01-17] VITALS: Ht 157.5 cm; Wt 103.7 kg
[2020-01-17 21:02] LABS: ABSOLUTE BASOPHILS 0.1 thou/uL (0.0-0.2); ABSOLUTE EOSINOPHILS 0.2 thou/uL (0.0-0.7); ABSOLUTE LYMPHOCYTES 2.1 thou/uL (0.8-5.3); ABSOLUTE MONOCYTES 0.7 thou/uL (0.0-1.2); ABSOLUTE NEUTROPHILS 3.8 thou/uL (1.6-8.1); BASOPHILS 0.8 %; EOSINOPHILS 3.2 %; HEMATOCRIT 36.5 % (37.0-47.0); HEMOGLOBIN 13.1 gm/dL (12.0-15.0); LYMPHOCYTES 30.9 %; MCH 30.7 pg (26.0-34.0); MCHC 35.8 g/dL (28.0-37.0); MCV 85.7 fL (80.0-100.0); MONOCYTES 9.6 %; MPV 7.1 fl. (7.2-11.1); NUCLEATED RBCS 0 /100WBC; PLATELET COUNT* 200 thou/uL (150-400); POLYS 55.5 %; RBC 4.26 mil/uL (4.20-5.00); RDW-CV 14.6 % (10.5-14.5); WBC 6.9 thou/uL (4.0-11.0)
[2020-01-17 21:11] LABS: CALCIUM 8.6 mg/dL (8.5-10.1); POTASSIUM 4.1 mmol/L (3.5-5.1)
[2020-01-17 21:23] LABS: ALBUMIN 3.8 g/dL (3.4-5.0); TOTAL BILIRUBIN 0.3 mg/dL (<0.1-1.0); TOTAL PROTEIN 6.6 g/dL (6.4-8.2)
[2020-01-17 21:28] LABS: URINE BILIRUBIN NEGATIVE (Negative); URINE BLOOD NEGATIVE (Negative); URINE CLARITY CLEAR; URINE COLOR YELLOW; URINE GLUCOSE-RANDOM NEGATIVE (Negative); URINE KETONES NEGATIVE (Negative); URINE LEUKOCYTES-REFLEX NEGATIVE (Negative); URINE NITRITE-REFLEX NEGATIVE (Negative); URINE PROTEIN NEGATIVE (Negative); URINE UROBILINOGEN 0.2 E.U./dl (0.2-1.0)
[2020-01-17 23:46] VITALS: BP 132/73
--- NOTE | 2020-01-18 11:19 | EKG ---
[place] [address] ELECTROCARDIOGRAM REPORT Name: KINGSTONDARSHANA Mario Room: [facility]#: [id number] Admission: 01/17/20 Attend Phys: Discharge: 01/17/20 Date of : 50 Date of Service: 01/17/202055 Report #: [id number] THIS REPORT FOR: //name// [facility] ED Test Date: 2020-01-17 Test Time: 20:56:14 Pat Name: DARSHANA ONOFRE Department: Room: Gender: F Surveillance System Monitor: : 1950 Requested By: Angelito Jackson Order Number: [id number] MD: Eric Yao Measurements Intervals [place] Rate: 72 P: 42 [place]: 166 QRS: -47 QRSD: 96 T: 12 QT: 407 QTc: 446 Interpretive Statements Sinus rhythm Inferior infarct, old Consider anterior infarct Compared to ECG 08/27/2019 12:55:00 No significant changes Electronically Signed On 01-18-2020 11:18:00 CDT by Eric Yao [email or web address] <ELECTRONICALLY SIGNED> By: Eric Yao MD, [facility] 01/18/20 1118 55 55 Eric Yoa MD, [facility] /EPI
== END 2020-01-17 23:46 | disposition home or self-care (01) ==
LOC: M.ERS 20:34
PROVIDERS: Family Medicine
DX: R10.84 Generalized abdominal pain (principal); G89.29 Other chronic pain; I10 Essential (primary) hypertension; K21.9 Gastro-esophageal reflux disease without esophagitis; M19.90 Unspecified osteoarthritis, unspecified site; E78.5 Hyperlipidemia, unspecified; E11.40 Type 2 diabetes mellitus with diabetic neuropathy, unspecified; Z90.710 Acquired absence of both cervix and uterus; Z88.0 Allergy status to penicillin; Z88.2 Allergy status to sulfonamides; Z88.1 Allergy status to other antibiotic agents

== ENCOUNTER 2021-09-11 10:15 | Emergency (ER) | payer MEDICARE, MEDICAID ==
[~2021-09-11] VITALS: Ht 160 cm; Wt 122.9 kg
[2021-09-11] MEDS ORDERED: ARICEPT10 M1 PO (10:28)
[2021-09-11] MEDS ORDERED: LORATIDINE 10 M10 M1 PO (10:31)
[2021-09-11] MEDS ORDERED: FLUOXETINE HCL40 MG PO (10:31)
[2021-09-11] MEDS ORDERED: FOLIC ACID1 MG PO (10:32)
[2021-09-11] MEDS ORDERED: MYRBETRIQ50 MG PO (10:32)
[2021-09-11] MEDS ORDERED: PRAZOSIN 1 MG CA1 M1 PO (10:33)
[2021-09-11] MEDS ORDERED: DULCOLAX STOOL100 M1 PO (10:34)
[2021-09-11] MEDS ORDERED: VITAMIN B-121000 MC2 SUBLING (10:34)
[2021-09-11] MEDS ORDERED: LYRICA300 MG PO (10:35)
[2021-09-11] MEDS ORDERED: LORAZEPAM 0.50.5 MG PO (10:36)
[2021-09-11 12:28] LABS: ABSOLUTE BASOPHILS 0.1 thou/uL (0.0-0.2); ABSOLUTE EOSINOPHILS 0.3 thou/uL (0.0-0.7); ABSOLUTE LYMPHOCYTES 1.6 thou/uL (0.8-5.3); ABSOLUTE MONOCYTES 0.9 thou/uL (0.0-1.2); ABSOLUTE NEUTROPHILS 5.4 thou/uL (1.6-8.1); BASOPHILS 0.7 %; EOSINOPHILS 3.8 %; HEMATOCRIT 38.7 % (37.0-47.0); HEMOGLOBIN 13.5 gm/dL (12.0-15.0); LYMPHOCYTES 19.4 %; MCH 30.7 pg (26.0-34.0); MCHC 34.8 g/dL (28.0-37.0); MCV 88.3 fL (80.0-100.0); MONOCYTES 10.4 %; MPV 6.7 fl. (7.2-11.1); NUCLEATED RBCS 0 /100WBC; PLATELET COUNT* 214 thou/uL (150-400); POLYS 65.7 %; RBC 4.39 mil/uL (4.20-5.00); WBC 8.3 thou/uL (4.0-11.0)
[2021-09-11 12:37] LABS: CALCIUM 8.7 mg/dL (8.5-10.1); POTASSIUM 4.4 mmol/L (3.5-5.1)
[2021-09-11 12:41] LABS: ALBUMIN 3.8 g/dL (3.4-5.0); TOTAL BILIRUBIN 0.3 mg/dL (<0.1-1.0); TOTAL PROTEIN 7.1 g/dL (6.4-8.2)
[2021-09-11 14:40] VITALS: BP 163/82
== END 2021-09-11 16:05 | disposition home or self-care (01) ==
LOC: M.ERS 10:15
PROVIDERS: Physician Assistant
DX: S92.351A Displaced fracture of fifth metatarsal bone, right foot, initial encounter for closed fracture (principal); S92.331A Displaced fracture of third metatarsal bone, right foot, initial encounter for closed fracture; S92.341A Displaced fracture of fourth metatarsal bone, right foot, initial encounter for closed fracture; K21.9 Gastro-esophageal reflux disease without esophagitis; I10 Essential (primary) hypertension; E78.5 Hyperlipidemia, unspecified; E11.40 Type 2 diabetes mellitus with diabetic neuropathy, unspecified; M19.90 Unspecified osteoarthritis, unspecified site; F32.9 Major depressive disorder, single episode, unspecified; F20.9 Schizophrenia, unspecified; Z90.710 Acquired absence of both cervix and uterus; Z79.899 Other long term (current) drug therapy; Z79.82 Long term (current) use of aspirin; Z79.4 Long term (current) use of insulin; Z88.0 Allergy status to penicillin; Z88.2 Allergy status to sulfonamides; W19.XXXA Unspecified fall, initial encounter; Y93.89 Activity, other specified; Y92.128 Other place in nursing home as the place of occurrence of the external cause; Y99.8 Other external cause status